=== PATIENT | female | born 1940 | race Caucasian/White ===

== ENCOUNTER → 2018-12-28 15:54 | Outpatient (CLI) | payer OTHER, SELFPAY ==
--- NOTE | 2018-12-28 | DI.RAD.S_ITS ---
PROCEDURE: XR KNEE RT 3V INDICATIONS: right knee pain TECHNIQUE: 3 views of the knee were acquired. COMPARISON: None. FINDINGS: Bones: Osteopenia. No fractures or dislocations. Moderate joint space narrowing most pronounced in the medial compartment. Small osteophytes. No suspicious bony lesions. Soft tissues: No significant joint effusion. No suspicious soft tissue calcifications. IMPRESSION: No acute osseous abnormality. 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 Dictated by: Garland Tilley M.D. on 12/28/2018 at 17:32 Approved by: Garland Tilley M.D. on 12/28/2018 at 17:33
== END ==
PROVIDERS: Family Provider Family Medicine; PCP Family Medicine; Visit Provider Family Medicine
DX: M25.561 Pain in right knee (principal); M17.11 Unilateral primary osteoarthritis, right knee
CPT/HCPCS: 73562

== ENCOUNTER → 2019-05-19 12:15 | Outpatient (CLI) | payer OTHER, SELFPAY ==
--- NOTE | 2019-05-19 12:21 | DI.RAD.S_ITS ---
PROCEDURE: XR HAND RT MIN 3V INDICATIONS: SWELLING OF MIDDLE FINGER POST FALL/ FOCUS ON MIDDLE FINGER TECHNIQUE: 3 views of the hand(s) acquired. COMPARISON: None. FINDINGS: Bones: Mildly impacted fracture of the base of the proximal phalanx of the middle finger. Diffuse interphalangeal joint degeneration and osteopenia. First CMC and triscaphe joint degeneration, severe. Ulnocarpal compartment chondrocalcinosis. Nonspecific lucency projecting in the distal ulna Soft tissues: No suspicious soft tissue calcifications. IMPRESSION: Middle finger proximal phalanx fracture Chondrocalcinosis Dictated by: Kam Mortensen M.D. on 05/19/2019 at 16:10 Approved by: Kam Mortensen M.D. on 05/19/2019 at 16:12
== END ==
PROVIDERS: Family Provider Family Medicine; PCP Family Medicine; Referring Provider Family Medicine; Visit Provider Family Medicine
DX: S62.612A Displaced fracture of proximal phalanx of right middle finger, initial encounter for closed fracture (principal); M79.89 Other specified soft tissue disorders; M11.241 Other chondrocalcinosis, right hand; M18.11 Unilateral primary osteoarthritis of first carpometacarpal joint, right hand; W19.XXXA Unspecified fall, initial encounter
CPT/HCPCS: 73130

== ENCOUNTER → 2020-11-06 11:39 | Outpatient (CLI) | payer OTHER, SELFPAY ==
--- NOTE | 2020-11-06 | DI.RAD.S_ITS ---
PROCEDURE: XR ELBOW LT MIN 3V INDICATIONS: left elbow injury TECHNIQUE: 3 views of the elbow were acquired. COMPARISON: None. FINDINGS: Bones: No fractures or dislocations. No suspicious bony lesions. Soft tissues: No elbow joint effusion. No suspicious soft tissue calcifications. IMPRESSION: No trauma found. Dictated by: Jose Lenz M.D. on 11/06/2020 at 15:50 Approved by: Jose Lenz M.D. on 11/06/2020 at 15:51
== END ==
PROVIDERS: PCP Family Medicine; Referring Provider Family Medicine; Visit Provider Family Medicine
DX: S59.902A Unspecified injury of left elbow, initial encounter (principal); X58.XXXA Exposure to other specified factors, initial encounter
CPT/HCPCS: 73080

== ENCOUNTER 2021-01-11 18:17 | Emergency (ER) | payer OTHER, SELFPAY ==
[2021-01-11] VITALS (11 sets, daily range): BP systolic 112–142; BP diastolic 60–72; PULSE 80–105; RESP 16–22; TEMP 37.2; O2SAT 96–99; BMI 26.5
--- NOTE | 2021-01-11 18:27 | DI.RAD.S_ITS ---
PROCEDURE: XR CHEST 1V INDICATIONS: suspected sepsis TECHNIQUE: One view of the chest was acquired. COMPARISON: [facility], , CHEST 1 VIEW, 02/20/2011, 16:25. FINDINGS: Surgical changes and devices: None. Lungs and pleura: Lungs are clear. No pleural effusions or pneumothorax. Mediastinum: Mediastinal contours appear normal. Heart size is normal. Bones and chest wall: No suspicious bony lesions. Overlying soft tissues appear unremarkable. IMPRESSION: No acute cardiopulmonary disease. Dictated by: Alessandro Soto M.D. on 01/11/2021 at 20:33 Approved by: Alessandro Soto M.D. on 01/11/2021 at 20:33
--- NOTE | 2021-01-11 18:42 | ED.FEVER ---
HPI - Fever General Chief Complaint: Fever Stated Complaint: Dehydrated and Fever Time Seen by Provider: 01/11/21 18:26 Source: patient Mode of arrival: Ambulatory History of Present Illness HPI Narrative: Patient is a 80-year-old female history of gastric bypass presenting today with generalized weakness and fever at home. She is been ongoing for last couple of days she just a feel quite right. Last night she had some abdominal pain. She has had a mild headache as well. sHe says she has neck pain but seems to be moving her neck rate easily. She she is not nauseous or vomiting. She does have intermittent diarrhea but that has been unchanged since her gastric bypass. She denies any chest pain palpitations no cough or shortness of breath. She has no painful or frequent urination. Related Data Home Medications Medication Instructions Recorded Confirmed alprazolam 0.25 mg tablet 0.25 mg PO PRN #0 02/16/11 esomeprazole magnesium 40 mg 40 mg PO QDAY@0600 #0 02/16/11 capsule,delayed release (Nexium) Previous Rx's Medication Instructions Recorded cephalexin 500 mg capsule 500 mg PO BID 7 Days #14 cap 01/11/21 Allergies Allergy/AdvReac Type Severity Reaction Status Date / Time Sulfa (Sulfonamide Allergy Severe ITCHY AND Verified 01/11/21 18:29 Antibiotics) SOB Review of Systems Review of Systems ROS Unobtainable: All systems reviewed & are unremarkable except as noted in HPI and below Constitutional Constitutional: Denies chills, Reports fatigue, Reports fever(s) and Reports headache(s) ENT Ears, Nose, Mouth, and Throat: Denies vertigo, Denies dizziness, Reports headache(s) and Reports neck pain Cardiovascular Cardiovascular: Denies chest pain, Denies irregular heart rhythm and Denies dyspnea on exertion Respiratory Respiratory: Denies chest congestion, Denies cough and Denies dyspnea on exertion Gastrointestinal Gastrointestinal: Reports abdominal pain and Denies nausea Genitourinary Genitourinary: Denies urinary incontinence and Denies urinary hesitancy Musculoskeletal Musculoskeletal: Denies back pain, Reports myalgias, Reports neck pain and Denies numbness Neurologic Neurologic: Denies vertigo, Denies dizziness, Reports headache(s) and Denies numbness Endocrine Endocrine: Reports fatigue Patient History Social History Smoking Status: Never smoker Smoking Status: Never smoker alcohol intake frequency: other Substance Use Type: does not use Exam Initial Vital Signs Initial Vital Signs: Vital Signs Temperature 98.9 F 01/11/21 18:26 Pulse Rate 105 H 01/11/21 18:26 Respiratory Rate 17 01/11/21 18:26 Blood Pressure 142/72 H 01/11/21 18:26 Pulse Oximetry 96 01/11/21 18:26 GENERAL: Alert well-appearing 80-year-old female HEENT: Head atraumatic,EOMI, pupils reactive, face symmetric, [moist] mucous membranes NECK: Supple no vertebral tenderness no meningeal signs CARDIOVASCULAR: Regular rate and rhythm without murmurs, rubs or gallops. RESPIRATORY: Breath sounds equal bilaterally, no wheezes rales or rhonchi. ABDOMEN: Soft, nontender. Normoactive bowel sounds all 4 quadrants. No guarding or rebound. EXTREMITIES: Normal range of motion, no clubbing or edema. Neurovascularly intact NEUROLOGICAL: Alert and oriented x4.Normal gait and speech. SKIN: Warm, dry, no laceration, no petechiae, no rashes or lesions. Course Orders Ordered: ED Orders 01/11/21 18:25 COVID19 -Nasal swab/Pre-Proc Stat 01/11/21 18:27 XR chest 1V Stat RT Consult Eval and Treat Now 01/11/21 18:40 Complete Blood Count AUTO DIFF Stat Comprehensive Metabolic Panel Stat Lactate (Lactic Acid) Stat Lipase Stat Procalcitonin Stat 01/11/21 19:00 Urinalysis and Microscopic Stat 01/11/21 19:06 EKG-12 Lead Stat 01/11/21 19:18 Blood Culture Stat 01/11/21 19:30 CT abdomen pelvis w con Stat CT head/brain wo con Stat Discontinued Medications Sodium Chloride (Normal Saline 0.9%) 1,000 mls @ 1,000 mls/hr IV BOLUS ONE Stop: 01/11/21 19:26 Last Infusion: 01/11/21 21:31 Dose: 0 mls/hr Documented by: Admin: 01/11/21 19:01 Dose: 1,000 mls/hr Documented by: ISAIAH Ceftriaxone Sodium 1,000 mg/ (Sodium Chloride) 100 mls @ 200 mls/hr IV NOW ONE Stop: 01/11/21 19:31 Last Infusion: 01/11/21 21:00 Dose: 0 mls/hr Documented by: Admin: 01/11/21 20:02 Dose: 200 mls/hr Documented by: ISAIAH Vital Signs Vital signs: Vital Signs - 8 hr 01/11/21 18:26 01/11/21 18:40 01/11/21 19:00 Temperature 98.9 F Pulse Rate 105 H Respiratory Rate 17 19 Blood Pressure 142/72 H 116/61 Pulse Oximetry 96 96 96 01/11/21 19:30 01/11/21 20:02 01/11/21 20:06 Temperature Pulse Rate 89 87 82 Respiratory Rate 22 20 Blood Pressure 127/63 121/61 Pulse Oximetry 96 98 01/11/21 20:30 01/11/21 20:57 01/11/21 21:00 Temperature Pulse Rate 80 86 83 Respiratory Rate 17 17 16 Blood Pressure 112/60 120/70 119/67 Pulse Oximetry 98 99 01/11/21 21:30 01/11/21 21:31 Temperature Pulse Rate 82 82 Respiratory Rate 20 Blood Pressure 123/64 Pulse Oximetry MDM - Fever Lab Data Result diagrams: 01/11/21 18:40 01/11/21 18:40 Labs: Lab Results 01/11/21 01/11/21 01/11/21 Range/Units 18:25 18:40 18:40 WBC 15.6 H (4.5-11.0) X10^3/uL RBC 4.60 (4.0-5.2) X10^6/uL Hgb 13.6 (12.0-16.0) g/dL Hct 40.8 (36-46) % MCV 88.7 (80-100) fL MCH 29.5 (26-34) PG MCHC 33.3 (30-36) % RDW 14.4 (11.6-14.8) % Plt Count 253 (150-400) X10^3/uL Neut % (Auto) 87.2 H (50-75) % Lymph % (Auto) 5.7 L (25-40) % [place] % (Auto) 6.5 (3-14) % Eos % (Auto) 0.1 L (2-4) % Baso % (Auto) 0.5 (0-2) % Neut # (Auto) 86933 H (0435-6760) /uL Lymph # (Auto) 900 L (1850-7675) /uL [place] # (Auto) 1000 H (0-900) /uL Eos # (Auto) 0 (0-450) /uL Baso # (Auto) 100 (0-100) /uL Sodium 128 L (137-145) mmol/L Potassium 3.7 (3.4-5.1) mmol/L Chloride 96 L (98-107) mmol/L Carbon Dioxide 22 (22-32) mmol/L BUN 15 (7-17) mg/dL Creatinine 0.93 (0.52-1.04) mg/dL Estimated GFR 58.3 L (>60) mL/min BUN/Creatinine Ratio 16.1 (6-22) Glucose 160 H (80-110) mg/dL Lactate (0.7-2.1) mmol/L Calcium 9.0 (8.4-10.2) mg/dL Total Bilirubin 0.7 (0.2-1.3) mg/dL AST 16 (14-36) IU/L ALT 9 (<35) IU/L Alkaline Phosphatase 92 (38-126) U/L Total Protein 6.7 (6.3-8.2) g/dL Albumin 3.8 (3.5-5.0) g/dL Globulin 2.9 (1.7-4.1) g/dL Albumin/Globulin Ratio 1.3 (1.0-2.8) Lipase 19 L (23-300) U/L Procalcitonin 0.21 (<0.5) ng/mL Urine Color Urine Appearance Urine pH (4.5-8.0) Ur Specific [place] (1.000-1.035) Urine Protein (Negative) Urine Glucose (UA) (Negative) g/dL Urine Ketones (NEGATIVE) Urine Occult Blood (Negative) Urine Nitrate (Negative) Urine Bilirubin (NEGATIVE) Urine Urobilinogen (0.2) E.U./dL Ur Leukocyte Esterase (NEGATIVE) Urine RBC (0-5/HPF) Urine WBC (0-5/HPF) Ur Squamous Epith Cells (0-5/HPF) Urine Bacteria (None) Ur Culture Indicated? Micro UA Comment SARS-CoV-2 (PCR) Negative (Negative) 01/11/21 01/11/21 Range/Units 18:40 19:00 WBC (4.5-11.0) X10^3/uL RBC (4.0-5.2) X10^6/uL Hgb (12.0-16.0) g/dL Hct (36-46) % MCV (80-100) fL MCH (26-34) PG MCHC (30-36) % RDW (11.6-14.8) % Plt Count (150-400) X10^3/uL Neut % (Auto) (50-75) % Lymph % (Auto) (25-40) % [place] % (Auto) (3-14) % Eos % (Auto) (2-4) % Baso % (Auto) (0-2) % Neut # (Auto) (8608-3232) /uL Lymph # (Auto) (8324-3984) /uL [place] # (Auto) (0-900) /uL Eos # (Auto) (0-450) /uL Baso # (Auto) (0-100) /uL Sodium (137-145) mmol/L Potassium (3.4-5.1) mmol/L Chloride (98-107) mmol/L Carbon Dioxide (22-32) mmol/L BUN (7-17) mg/dL Creatinine (0.52-1.04) mg/dL Estimated GFR (>60) mL/min BUN/Creatinine Ratio (6-22) Glucose (80-110) mg/dL Lactate 1.0 (0.7-2.1) mmol/L Calcium (8.4-10.2) mg/dL Total Bilirubin (0.2-1.3) mg/dL AST (14-36) IU/L ALT (<35) IU/L Alkaline Phosphatase (38-126) U/L Total Protein (6.3-8.2) g/dL Albumin (3.5-5.0) g/dL Globulin (1.7-4.1) g/dL Albumin/Globulin Ratio (1.0-2.8) Lipase (23-300) U/L Procalcitonin (<0.5) ng/mL Urine Color Yellow Urine Appearance Cloudy Urine pH 5.5 (4.5-8.0) Ur Specific [place] 1.010 (1.000-1.035) Urine Protein 1+ H (Negative) Urine Glucose (UA) Negative (Negative) g/dL Urine Ketones Trace H (NEGATIVE) Urine Occult Blood 3+ H (Negative) Urine Nitrate Positive H (Negative) Urine Bilirubin Negative (NEGATIVE) Urine Urobilinogen 0.2 (0.2) E.U./dL Ur Leukocyte Esterase 2+ H (NEGATIVE) Urine RBC 5-10/hpf H (0-5/HPF) Urine WBC >100/hpf H (0-5/HPF) Ur Squamous Epith Cells 10-30 /hpf H (0-5/HPF) Urine Bacteria Many (>30) H (None) Ur Culture Indicated? Cult not indicated Micro UA Comment 2.5 ml submitted SARS-CoV-2 (PCR) (Negative) Imaging Data CT scan - head: Radiologist's Impression: PROCEDURE:? CT HEAD/BRAIN WO CON ? INDICATIONS:? headache ? TECHNIQUE:? Noncontrast 4.5 mm thick angled axial sections acquired from the foramen magnum to the vertex, with coronal and sagittal reformats.? For radiation dose reduction, the following was used:? automated exposure control, adjustment of mA and/or kV according to patient size.? ? COMPARISON:? [facility], CT, HEAD WITHOUT CONTRAST, 05/20/2016, 20:32. ? FINDINGS:? Image quality:? Excellent.? ? CSF spaces:? Basal cisterns are patent.? No extra-axial fluid collections.? The ventricles are symmetric in size and shape.? ? Brain:? No intracranial bleeds or masses.? There are old lacunar infarcts in right caudate and basal ganglia.? There is cerebral volume loss for age, with resultant ventricular and sulcal prominence.? There are periventricular and deep white matter chronic small vessel ischemic changes.? There is intracranial internal carotid artery atherosclerosis.? ? Skull and face:? Calvarium and visualized facial bones appear intact, without suspicious lesions.? ? Sinuses:? Visualized sinuses and mastoids are clear.? ? IMPRESSION:? ? 1. No acute intracranial abnormalities. ? ? ? Dictated by: Alessandro Soto M.D. on 01/11/2021 at 20:14 ? ? CT scan - abdomen/pelvis: Radiologist's Impression: PROCEDURE:? CT ABDOMEN PELVIS W CON ? INDICATIONS:? pain hx gastric bypass ? TECHNIQUE:? After the administration of intravenous contrast, axial sections acquired from the lung bases to the pubic symphysis.? Coronal and sagittal reformats were performed.? For radiation dose reduction, the following was used:? automated exposure control, adjustment of mA and/or kV according to patient size.? ? COMPARISON:? [facility], CT, ABDOMEN/PELVIS WITH CONTRAST, 02/20/2011, 13:18. ? FINDINGS:? Image quality:? Excellent.? ? Lung bases:? Bibasilar atelectasis.? Mild emphysema. Heart:? No significant findings. ? ABDOMEN: Liver:? Normal in size.? Mild intrahepatic biliary dilation.? There is a 0.7 cm low-density nodule in the anterior aspect of the right hepatic lobe, most likely a cyst.? ? Gallbladder:? Not visualized, possibly surgically removed. Biliary ducts:? Mildly prominent.? Common bile duct measures 8 mm in diameter. ? ? ? Pancreas:? Unremarkable. Spleen:? Unremarkable.? ? Adrenal Glands:? Unremarkable.? ? Kidneys and Ureters:? Kidneys are normal in size.? There are masslike areas of decreased enhancement in the inferior pole of the right kidney, most likely secondary to pyelonephritis.? There is extrarenal pelvis in right kidney left kidney demonstrates normal size and enhancement.? No renal stones or hydronephrosis.? ? ? Stomach and Bowel:? There are postsurgical changes related to gastric bypass.? There is thickening at the GE junction is most likely postsurgical in nature.? Small bowel loops, and colon are unremarkable.? Peritoneum:? No abnormal intraperitoneal fluid.? No free air.? ? Ventral Wall: ? Small fat containing umbilical hernia.? Abdominal Nodes:? No retroperitoneal or mesenteric adenopathy by size criteria.? Vessels:? Aorta and inferior vena cava are normal in size.? ? PELVIS: Pelvic Organs:? Unremarkable.? ? Bladder:? Bladder is mildly thickened.? ? Pelvic Nodes: No enlarged lymph nodes.? Miscellaneous: No hernias are seen. ? ? ? Bones:? Moderate to severe degenerative changes in lumbar spine.? There is grade 1 anterolisthesis of L4 on L5. ? ? IMPRESSION:? ? 1. The inferior pole of the right kidney is abnormal with masslike areas of decreased enhancement, suspicious for pyelonephritis.? The urinary bladder is mildly thickened consistent with cystitis. 2. Postsurgical changes related to gastric bypass. 3. A 0.7 cm low-density nodule in liver is most likely a cyst.? ? ? The preliminary result was discussed with Dr. Mcclain. ? Dictated by: Alessandro Soto M.D. on 01/11/2021 at 21:12 ? ? Approved by: Alessandro Soto M.D. on 01/11/2021 at 21:24 Chest x-ray: Radiologist's Impression: PROCEDURE:? XR CHEST 1V ? INDICATIONS:? suspected sepsis ? TECHNIQUE:? One view of the chest was acquired.? ? COMPARISON:? [facility], , CHEST 1 VIEW, 02/20/2011, 16:25. ? FINDINGS:? ? Surgical changes and devices:? None.? ? Lungs and pleura:? Lungs are clear.? No pleural effusions or pneumothorax.? ? Mediastinum:? Mediastinal contours appear normal.? Heart size is normal.? ? Bones and chest wall:? No suspicious bony lesions.? Overlying soft tissues appear unremarkable.? ? IMPRESSION:? No acute cardiopulmonary disease. ? ? Dictated by: Alessandro Soto M.D. on 01/11/2021 at 20:33 ? ? ECG Data Interpretation: Normal sinus rhythm rate [address] changes Q-waves noted in lead 3 similar to previous EKG. Q-waves are also noted in septal leads similar to previous. MDM Narrative Medical decision making narrative: Patient is found to have leukocytosis UTI and pyelonephritis on CT. She has a normal lactic acid normal vitals is. She is overall feeling better after fluids. She has minimally elevated procalcitonin. She is given 1 dose of Rocephin in the emergency department. At this time does not meet any admission criteria she overall appears well she is not septic. At this time can be treated as an outpatient. Discussed with and patient when to return to the emergency department. Discharge Plan Departure Patient Disposition: Home Clinical Impression: UTI (urinary tract infection) Qualifiers: Urinary tract infection type: acute pyelonephritis Qualified Code(s): N10 - Acute pyelonephritis Instructions: DI for Kidney Infection Activity Restrictions/Additional Instructions: *You have been diagnosed with kidney infection *What to do: At this time you do have a kidney infection. Increase fluids as tolerated. Sodium is also noted to be a little bit low. Please have this rechecked with her primary care provider this week. *Continue to take medications as directed Keflex 500 mg twice a day for 7 days *Follow up with your primary care provider in 2-3 days *Return to ER if you should have increasing weakness, increasing confusion, increasing pain or any new, worsening or concerning symptoms Prescriptions: New cephalexin 500 mg capsule 500 mg PO BID 7 Days Qty: 14 RF: 0 No Action esomeprazole magnesium [Nexium] 40 MG capsule,delayed release(DR/EC) 40 mg PO QDAY@0600 Qty: 0 RF: 0 alprazolam 0.25 MG tablet 0.25 mg PO PRN Qty: 0 RF: 0 Referrals: Elie Bolaños MD [Primary Care Provider] -
[2021-01-11 18:53] LABS: COVID19 -Nasal RAPID Negative (Negative)
[2021-01-11] MEDS: SODIUM CHLORIDE 0.9% 1,000 ML 1000 ML IV (19:01)
[2021-01-11 19:11] LABS: Add Manual Diff / Slide Review NO; Basophils Absolute Auto 100 /uL (0-100); Basophils Percent Auto 0.5 % (0-2); Eosinophils Absolute Auto 0 /uL (0-450); Eosinophils Percent Auto 0.1 % (2-4); Hematocrit 40.8 % (36-46); Hemoglobin 13.6 g/dL (12.0-16.0); Lymphocytes Absolute Auto 900 /uL (1100-4500); Lymphocytes Percent Auto 5.7 % (25-40); Mean Corpuscular HGB Conc 33.3 % (30-36); Mean Corpuscular Hemoglobin 29.5 PG (26-34); Mean Corpuscular Volume 88.7 fL (80-100); Monocytes Absolute Auto 1000 /uL (0-900); Monocytes Percent Auto 6.5 % (3-14); Neutrophils Absolute Auto 13600 /uL (1500-7000); Neutrophils Percent Auto 87.2 % (50-75); Platelet Count 253 X10^3/uL (150-400); Red Cell Distribution Width 14.4 % (11.6-14.8); White Blood Cell Count 15.6 X10^3/uL (4.5-11.0)
[2021-01-11 19:11] LABS: Appearance Urine UA CLOUDY; Bilirubin Urine UA NEGATIVE (NEGATIVE); Color Urine UA YELLOW; Glucose Urine UA NEGATIVE (Negative); Ketones Urine UA TRACE (NEGATIVE); Leukocyte Esterase Urine UA 2+ (NEGATIVE); Nitrite Urine UA POSITIVE (Negative); Occult Blood Urine UA 3+ (Negative); Protein Urine UA 1+ (Negative); Urobilinogen Urine UA 0.2 E.U./dL (0.2)
[2021-01-11 19:23] LABS: Alanine Aminotransferase 9 IU/L (<35); Albumin 3.8 g/dL (3.5-5.0); Albumin Globulin Ratio 1.3 (1.0-2.8); Alkaline Phosphatase 92 U/L (38-126); Aspartate Aminotransferase 16 IU/L (14-36); BUN Creatinine Ratio 16.1 (6-22); Bilirubin Total 0.7 mg/dL (0.2-1.3); Blood Urea Nitrogen 15 mg/dL (7-17); Carbon Dioxide 22 mmol/L (22-32); Chloride 96 mmol/L (98-107); Estimated Glomerular Filt Rate 58.3 mL/min (>60); Globulin 2.9 g/dL (1.7-4.1); Glucose 160 mg/dL (80-110); HEMOLYSIS < 15 (0-50); Lipase 19 U/L (23-300); Potassium 3.7 mmol/L (3.4-5.1); Sodium 128 mmol/L (137-145); Total Protein 6.7 g/dL (6.3-8.2)
[2021-01-11 19:24] LABS: RBC Urine 5-10/HPF (0-5/HPF); Squamous Epithelial Cell Urine 10-30 /HPF (0-5/HPF); WBC Urine >100/HPF (0-5/HPF); pH Urine UA 5.5 (4.5-8.0)
[2021-01-11 19:25] LABS: Bacteria Urine Many (>30); Urine Comments 2.5 ML SUBMITTED
[2021-01-11 19:27] LABS: Culture Indicated Urine Cult Not Indicated
--- NOTE | 2021-01-11 19:30 | DI.CT.S_ITS ---
PROCEDURE: CT HEAD/BRAIN WO CON INDICATIONS: headache TECHNIQUE: Noncontrast 4.5 mm thick angled axial sections acquired from the foramen magnum to the vertex, with coronal and sagittal reformats. For radiation dose reduction, the following was used: automated exposure control, adjustment of mA and/or kV according to patient size. COMPARISON: [facility], CT, HEAD WITHOUT CONTRAST, 05/20/2016, 20:32. FINDINGS: Image quality: Excellent. CSF spaces: Basal cisterns are patent. No extra-axial fluid collections. The ventricles are symmetric in size and shape. Brain: No intracranial bleeds or masses. There are old lacunar infarcts in right caudate and basal ganglia. There is cerebral volume loss for age, with resultant ventricular and sulcal prominence. There are periventricular and deep white matter chronic small vessel ischemic changes. There is intracranial internal carotid artery atherosclerosis. Skull and face: Calvarium and visualized facial bones appear intact, without suspicious lesions. Sinuses: Visualized sinuses and mastoids are clear. IMPRESSION: 1. No acute intracranial abnormalities. Dictated by: Alessandro Soto M.D. on 01/11/2021 at 20:14 Approved by: Alessandro Soto M.D. on 01/11/2021 at 20:16
--- NOTE | 2021-01-11 19:30 | DI.CT.S_ITS ---
PROCEDURE: CT ABDOMEN PELVIS W CON INDICATIONS: pain hx gastric bypass TECHNIQUE: After the administration of intravenous contrast, axial sections acquired from the lung bases to the pubic symphysis. Coronal and sagittal reformats were performed. For radiation dose reduction, the following was used: automated exposure control, adjustment of mA and/or kV according to patient size. COMPARISON: [facility], CT, ABDOMEN/PELVIS WITH CONTRAST, 02/20/2011, 13:18. FINDINGS: Image quality: Excellent. Lung bases: Bibasilar atelectasis. Mild emphysema. Heart: No significant findings. ABDOMEN: Liver: Normal in size. Mild intrahepatic biliary dilation. There is a 0.7 cm low-density nodule in the anterior aspect of the right hepatic lobe, most likely a cyst. Gallbladder: Not visualized, possibly surgically removed. Biliary ducts: Mildly prominent. Common bile duct measures 8 mm in diameter. Pancreas: Unremarkable. Spleen: Unremarkable. Adrenal Glands: Unremarkable. Kidneys and Ureters: Kidneys are normal in size. There are masslike areas of decreased enhancement in the inferior pole of the right kidney, most likely secondary to pyelonephritis. There is extrarenal pelvis in right kidney left kidney demonstrates normal size and enhancement. No renal stones or hydronephrosis. Stomach and Bowel: There are postsurgical changes related to gastric bypass. There is thickening at the GE junction is most likely postsurgical in nature. Small bowel loops, and colon are unremarkable. Peritoneum: No abnormal intraperitoneal fluid. No free air. Ventral Wall: Small fat containing umbilical hernia. Abdominal Nodes: No retroperitoneal or mesenteric adenopathy by size criteria. Vessels: Aorta and inferior vena cava are normal in size. PELVIS: Pelvic Organs: Unremarkable. Bladder: Bladder is mildly thickened. Pelvic Nodes: No enlarged lymph nodes. Miscellaneous: No hernias are seen. Bones: Moderate to severe degenerative changes in lumbar spine. There is grade 1 anterolisthesis of L4 on L5. IMPRESSION: 1. The inferior pole of the right kidney is abnormal with masslike areas of decreased enhancement, suspicious for pyelonephritis. The urinary bladder is mildly thickened consistent with cystitis. 2. Postsurgical changes related to gastric bypass. 3. A 0.7 cm low-density nodule in liver is most likely a cyst. The preliminary result was discussed with Dr. Mcclain. Dictated by: Alessandro Soto M.D. on 01/11/2021 at 21:12 Approved by: Alessandro Soto M.D. on 01/11/2021 at 21:24
[2021-01-11 19:39] LABS: Procalcitonin 0.21 ng/mL (<0.5)
[2021-01-11] MEDS: cefTRIAXone 1,000 MG in SODIUM CHLORIDE 0.9% 100 ML 200 ML IV (20:02)
== END 2021-01-11 21:51 | disposition home or self-care (01) ==
PROVIDERS: Emergency Provider Emergency Medicine; PCP Family Medicine
DX: N39.0 Urinary tract infection, site not specified (principal); E86.0 Dehydration; R50.9 Fever, unspecified; R53.1 Weakness; R10.9 Unspecified abdominal pain; R51.9 Headache, unspecified; Z20.822 Contact with and (suspected) exposure to COVID-19
CPT/HCPCS: 36415; 70450; 71045; 74177; 80053; 81001; 83605; 83690; 84145; 85025; 87040; 87635; 93005; 96361; 96365; 99284; C9803; J0696; Q9967

== ENCOUNTER 2021-06-07 19:38 | Emergency (ER) | payer OTHER, SELFPAY ==
[2021-06-07 19:49] VITALS: BP 140/85; PULSE 76; RESP 20; TEMP 36.8; O2SAT 97
[2021-06-07] MEDS: LIDO 1%/SOD BICARB 8.4% (10ML) 10 ML SYRINGE INJ (20:11)
--- NOTE | 2021-06-07 20:21 | ED_ITS ---
HPI - Extremity Injury (Upper) General Chief Complaint: Extremity Injury, Upper Stated Complaint: deep/large laceration on arm, GLF Time Seen by Provider: 06/07/21 19:42 Source: patient and family Mode of arrival: Wheelchair History of Present Illness HPI narrative: 81-year-old female nonsmoker with history of GERD presents with her for evaluation of a laceration on the dorsum of her left forearm just prior to arrival. She had been in her normal state of health and tripped and fell on a box on the ground suffering this laceration. She denies any head neck or back pain. She denies any underlying bony injury. She has a superficial laceration with minimal bleeding. She denies any numbness, tingling or weakness. She is otherwise well and free of complaint Related Data Home Medications Medication Instructions Recorded Confirmed alprazolam 0.25 mg tablet 0.25 mg PO PRN #0 02/16/11 esomeprazole magnesium 40 mg 40 mg PO QDAY@0600 #0 02/16/11 capsule,delayed release (Nexium) Previous Rx's Medication Instructions Recorded cephalexin 500 mg capsule 500 mg PO Q6H 7 Days #28 cap 06/07/21 Allergies Allergy/AdvReac Type Severity Reaction Status Date / Time Sulfa (Sulfonamide Allergy Severe ITCHY AND Verified 01/11/21 18:29 Antibiotics) SOB Review of Systems Review of Systems Narrative: GENERAL: Denies chills, fatigue, malaise, fever, sweats. HEENT: Denies sinus pain, ear pain, sore throat, difficulty swallowing, dizziness. RESPIRATORY: Denies dyspnea, cough, wheezing, hemoptysis, sputum. CARDIOVASCULAR: Denies chest pain, palpitations, orthopnea, edema, GASTROINTESTINAL: Denies nausea, vomiting, abdominal pain, diarrhea, constipation, melena. : Denies dysuria, frequency, incontinence, hematuria, urinary retention. MUSCULOSKELETAL: denies weakness, joint pain, or bony pain SKIN: See HPI NEUROLOGIC: Denies weakness, headache, numbness, change in speech, confusion, seizures, incoordination. PSYCHIATRIC: No concerning psychosocial issues. 12 point review of systems is negative except for those stated above Patient History Social History Smoking Status: Never smoker Smoking Status: Never smoker alcohol intake frequency: other Substance Use Type: does not use Exam Narrative Exam Narrative: GENERAL: 81 [] year old patient appears stated age. Well-developed patient, in mild distress. GCS 15 HEAD: Atraumatic. Normocephalic. EYES: Pupils equal round and reactive. Extraocular motions intact. No scleral icterus. No injection or drainage. ENT: Nose without bleeding, purulent drainage. Throat without erythema, tonsillar hypertrophy or exudate. Airway patent. NECK: Trachea midline. Non tender CARDIOVASCULAR: Regular rate and rhythm without murmurs, gallops, or rubs. RESPIRATORY: Clear to auscultation. Breath sounds equal bilaterally. No wheezes, rales, or rhonchi. GASTROINTESTINAL: Abdomen soft, non-tender, nondistended. EXTREMITIES: Irregular laceration and skin tear on dorsum of left forearm measuring 10 cm with minimal bleeding, clean without obvious contamination or foreign body. Viewed in a bloodless field and no evidence of muscle or tendon injury. No edema or joint tenderness. BACK: Nontender without deformity or crepitance. No flank tenderness. NEURO: AOx3. SKIN: No rash or erythema of visible areas Initial Vital Signs Initial Vital Signs: Vital Signs Temperature 98.2 F 06/07/21 19:49 Pulse Rate 76 06/07/21 19:49 Respiratory Rate 20 06/07/21 19:49 Blood Pressure 140/85 06/07/21 19:49 Pulse Oximetry 97 06/07/21 19:49 Procedures Laceration Repair Laceration 1: Site: upper extremity Side (If applicable): left Size (cm): 10 Description: stellate, flap, irregular and clean Depth: simple, single layer Local Anesthetic: lidocaine 1% and with bicarb Amount of anesthesia used (mL): 6 Pre-repair: wound explored and irrigated extensively Skin layer closed with: nylon Size (cm): 4-0 Number of sutures: 12 Technique: simple, interrupted Subcutaneous layer closed with: vicryl Size: 4-0 Number of sutures: 2 Technique: simple, interrupted Course Orders Ordered: Discontinued Medications Bacitracin (Bacitracin Oint 0.9 Gm Pckt) 1 applic TOP NOW ONE Stop: 06/07/21 20:20 Lidocaine/Sodium Bicarbonate (Lido 1%/Sod Bicarb 8.4% (10ml) 10 Ml Syringe) 10 ml INJ NOW ONE Stop: 06/07/21 19:52 Last Admin: 06/07/21 20:11 Dose: 10 ml Documented by: JOSSIE Vital Signs Vital signs: Vital Signs - 8 hr 06/07/21 19:49 Temperature 98.2 F Pulse Rate 76 Respiratory Rate 20 Blood Pressure 140/85 Pulse Oximetry 97 Discharge Plan Departure Patient Disposition: Home Clinical Impression: Laceration of upper extremity Instructions: DI for Laceration Repair Activity Restrictions/Additional Instructions: *You have been diagnosed with [left upper extremity laceration *What to do: *Please continue to take your regular medications as directed. [x ] New medication prescriptions sent to your pharmacy: [ [facility]] [ ] New medication written as a paper prescription [ ] No new medications given * Please keep the wound clean and dry to the best of your ability. Please monitor for signs of infection such as redness to the skin or increasing pain. Have the sutures/socorro removed by your doctor in about 7 days. If you are unable to get into your doctor, we would be happy to remove the sutures/socorro in that same timeframe. *If you do not have a primary care provider please contact the [facility] Resource line at [phone]. They will ask some questions about your medical history and help get you set up with a doctor in the community. *Return to Emergency Department if you should have any new, worsening or concerning symptoms, such as [fever greater than 101 F, shaking chills, worsening pain, persistent vomiting or other bothersome symptoms] Prescriptions: New cephalexin 500 mg capsule 500 mg PO Q6H 7 Days Qty: 28 0RF No Action esomeprazole magnesium [Nexium] 40 MG capsule,delayed release(DR/EC) 40 mg PO QDAY@0600 Qty: 0 0RF alprazolam 0.25 MG tablet 0.25 mg PO PRN Qty: 0 0RF Referrals: Elie Bolaños MD [Primary Care Provider] -
[2021-06-07] MEDS: BACITRACIN OINT 0.9 GM PCKT 1 APPLIC TOP (20:24)
== END 2021-06-07 20:36 | disposition home or self-care (01) ==
PROVIDERS: Emergency Provider Emergency Medicine; PCP Family Medicine
DX: S51.812A Laceration without foreign body of left forearm, initial encounter (principal); Z88.2 Allergy status to sulfonamides; W18.09XA Striking against other object with subsequent fall, initial encounter
CPT/HCPCS: 12004; 99282; 99283

== ENCOUNTER 2022-05-22 14:05 | Observation (INO) | payer OTHER, SELFPAY ==
[2022-05-22] VITALS (16 sets, daily range): BP systolic 107–156; BP diastolic 60–70; PULSE 77–85; RESP 13–22; TEMP 36.8; O2SAT 90–99; BMI 22.6; BMI 20.1
--- NOTE | 2022-05-22 14:25 | DI.RAD.S_ITS ---
PROCEDURE: XR CHEST 1V INDICATIONS: suspected sepsis TECHNIQUE: One view of the chest was acquired. COMPARISON: [facility], CR, XR CHEST 1V, 01/11/2021, 19:39. FINDINGS: Surgical changes and devices: None. Lungs and pleura: Right lower lobe infiltrate consistent with pneumonia. No pleural effusions or pneumothorax. Mediastinum: Mediastinal contours appear normal. Heart size is normal. Bones and chest wall: No suspicious bony lesions. Overlying soft tissues appear unremarkable. IMPRESSION: Right lower lobe pneumonia. Dictated by: Alessandro Soto M.D. on 05/22/2022 at 15:00 Approved by: Alessandro Soto M.D. on 05/22/2022 at 15:14
[2022-05-22 15:15] LABS: Influenza A - CEPHEID Flu A NEGATIVE (NEGATIVE); Influenza B - CEPHEID Flu B NEGATIVE (NEGATIVE); Respiratory Syncytial Virus Negative (Negative)
[2022-05-22 15:16] LABS: Add Manual Diff / Slide Review NO; Basophils Absolute Auto 0 /uL (0-100); Basophils Percent Auto 0.3 % (0-2); Eosinophils Absolute Auto 0 /uL (0-450); Hematocrit 42.3 % (36-46); Hemoglobin 13.9 g/dL (12.0-16.0); Lymphocytes Absolute Auto 600 /uL (1100-4500); Lymphocytes Percent Auto 5.2 % (25-40); Mean Corpuscular HGB Conc 32.9 % (30-36); Mean Corpuscular Hemoglobin 29.7 PG (26-34); Mean Corpuscular Volume 90.2 fL (80-100); Monocytes Absolute Auto 600 /uL (0-900); Neutrophils Absolute Auto 9800 /uL (1500-7000); Neutrophils Percent Auto 89.5 % (50-75); Platelet Count 198 X10^3/uL (150-400); Red Blood Cell Count 4.69 X10^6/uL (4.0-5.2); Red Cell Distribution Width 13.8 % (11.6-14.8)
[2022-05-22 15:25] LABS: Prothrombin Time 11.2 SECONDS (10.1-12.7)
[2022-05-22 15:28] LABS: PTT Partial Thromboplastin Tim 31 SECONDS (26-36)
[2022-05-22 15:32] LABS: Lactate (Lactic Acid) 1.1 mmol/L (0.7-2.1)
[2022-05-22 15:34] LABS: Alanine Aminotransferase 26 IU/L (<35); Albumin 3.9 g/dL (3.5-5.0); Albumin Globulin Ratio 1.4 (1.0-2.8); Alkaline Phosphatase 88 U/L (38-126); Aspartate Aminotransferase 42 IU/L (14-36); BUN Creatinine Ratio 18.1 (6-22); Bilirubin Total 0.5 mg/dL (0.2-1.3); Blood Urea Nitrogen 13 mg/dL (7-17); Calcium 8.2 mg/dL (8.4-10.2); Carbon Dioxide 25 mmol/L (22-32); Chloride 95 mmol/L (98-107); Estimated Glomerular Filt Rate > 60 mL/min (>60); Globulin 2.8 g/dL (1.7-4.1); Glucose 133 mg/dL (80-110); HEMOLYSIS < 15 (0-50); Lipase 14 U/L (23-300); Potassium 3.8 mmol/L (3.4-5.1); Sodium 131 mmol/L (137-145); Total Protein 6.7 g/dL (6.3-8.2)
[2022-05-22 15:43] LABS: COVID-19 CEPHEID 4-PLEX PCR Negative (Negative)
[2022-05-22 15:46] LABS: NT-proBNP (BNP-Adult 18+) 840 pg/mL (<450); Troponin I 0.052 ng/mL (0.01-0.034)
[2022-05-22 15:50] LABS: Procalcitonin 1.42 ng/mL (<0.5)
--- NOTE | 2022-05-22 15:52 | ED.URI ---
HPI - URI/Sore Throat General Chief Complaint: Upper Respiratory Symptoms Stated Complaint: possible pnemonia t-3 Time Seen by Provider: 05/22/22 14:44 Source: patient Mode of arrival: Wheelchair History of Present Illness HPI Narrative: Patient is an 82-year-old female history of GERD, presenting today with increasing shortness of breath weakness and fatigue. She apparently was just treated with Macrobid for a bladder infection by her PCP. It appears that Macrobid was written on the 21 of May. She said increasing weakness shortness of breath. No real chest pain. She said decrease in appetite no nausea or vomiting. Related Data Home Medications Medication Instructions Recorded Confirmed alprazolam 0.25 mg tablet 0.25 mg PO PRN ##0 02/16/11 05/22/22 brimonidine 0.2 % eye drops 1 drp EYE-BOTH DAILY 05/22/22 05/22/22 celecoxib 200 mg capsule 200 mg PO DAILY 05/22/22 05/22/22 dorzolamide 22.3 mg-timolol 6.8 1 drp EYE-BOTH DAILY 05/22/22 05/22/22 mg/mL eye drops hydrocodone 5 mg-acetaminophen 325 5 - 325 tab PO Q4H PRN Pain (Scale 05/22/22 05/22/22 mg tablet Score 4-6) omeprazole 20 mg capsule,delayed 20 mg PO DAILY 05/22/22 05/22/22 release trospium 60 mg capsule,extended 60 mg PO BEDTIME 05/22/22 05/22/22 release 24 hr zolpidem 12.5 mg tablet,extended 12.5 mg PO DAILY 05/22/22 05/22/22 release,multiphase Previous Rx's Medication Instructions Recorded azithromycin 500 mg tablet 500 mg PO DAILY 2 days #2 tabs 05/24/22 Allergies Allergy/AdvReac Type Severity Reaction Status Date / Time Sulfa (Sulfonamide Allergy Severe ITCHY AND Verified 05/22/22 14:23 Antibiotics) SOB Review of Systems Review of Systems ROS Unobtainable: All systems reviewed & are unremarkable except as noted in HPI and below Patient History Social History household members: spouse Smoking Status: Never smoker alcohol intake: current Smoking Status: Never smoker alcohol intake frequency: other Substance Use Type: does not use Exam Initial Vital Signs Initial Vital Signs: Vital Signs Temperature 98.2 F 05/22/22 14:19 Pulse Rate 85 05/22/22 14:19 Respiratory Rate 18 05/22/22 14:19 Blood Pressure 107/65 05/22/22 14:19 Pulse Oximetry 92 05/22/22 14:19 Oxygen Delivery Method Room Air 05/22/22 14:19 GENERAL: Alert thin week 82-year-old female no acute distress HEENT: Head atraumatic,EOMI, pupils reactive, face symmetric, moist mucous membranes CARDIOVASCULAR: Regular rate and rhythm without murmurs, rubs or gallops. RESPIRATORY: Breath sounds equal bilaterally, no wheezes rales or rhonchi. ABDOMEN: Soft, nontender. Normoactive bowel sounds all 4 quadrants. No guarding or rebound. EXTREMITIES: Normal range of motion, no clubbing or edema. Neurovascularly intact NEUROLOGICAL: Alert and oriented x4.Normal gait and speech. SKIN: Warm, dry, no laceration, no petechiae, no rashes or lesions. Course Orders Ordered: Discontinued Medications Acetaminophen (Acetaminophen 325 Mg Tablet) 650 mg PO Q6H PRN PRN Reason: Fever/Mild Pain (1-3) Hydrocodone Bitart/Acetaminophen (Hydrocodone/Acet 5/325 Tablet) 1 tab PO Q4HR PRN PRN Reason: Pain, Moderate (4-6) Last Admin: 05/24/22 13:06 Dose: 1 tab Documented By: [facility] Admin: 05/24/22 09:06 Dose: 1 tab Documented By: [facility] Admin: 05/24/22 05:16 Dose: 1 tab Documented By: Admin: 05/23/22 20:50 Dose: 1 tab Documented By: Admin: 05/23/22 16:28 Dose: 1 tab Documented By: Admin: 05/23/22 11:38 Dose: 1 tab Documented By: Admin: 05/23/22 03:38 Dose: 1 tab Documented By: Admin: 05/22/22 21:51 Dose: 1 tab Documented By: DOM Al Hydrox/Mg Hydrox/Simethicone (Mag Hydrox/Alum/Simeth 30 Ml Udc) 30 ml PO Q6HR PRN PRN Reason: Dyspepsia Alprazolam (Alprazolam 0.25 Mg Tablet) 0.25 mg PO BEDTIME [facility] Last Admin: 05/23/22 03:46 Dose: 0.25 mg Documented By: DOM Alprazolam (Alprazolam 0.25 Mg Tablet) 0.25 mg PO BEDTIME PRN PRN Reason: Insomnia Last Admin: 05/24/22 05:16 Dose: 0.25 mg Documented By: DOM Brimonidine Tartrate (Brimonidine 0.2% Ophth 5 Ml) 1 drops EYE-BOTH DAILY [facility] Last Admin: 05/23/22 08:48 Dose: Not Given Documented By: VAZQUEZ Brimonidine Tartrate (Brimonidine 0.2% Ophth 5 Ml) 1 drops EYE-BOTH BID [facility] Last Admin: 05/24/22 09:03 Dose: 1 drops Documented By: Admin: 05/23/22 20:46 Dose: Not Given Documented By: DOM Calcium Carbonate (Calcium Carbonate 500 Mg Tab) 1,000 mg PO Q4HR PRN PRN Reason: Dyspepsia Celecoxib (Celecoxib 200 Mg Capsule) 200 mg PO DAILY [facility] Last Admin: 05/24/22 09:01 Dose: 200 mg Documented By: Admin: 05/23/22 08:47 Dose: 200 mg Documented By: VAZQUEZ Dorzolamide/Timolol (Dorzolamide/Timolol Ophth 10 Ml) 1 drops EYE-BOTH DAILY [facility] Last Admin: 05/23/22 08:48 Dose: Not Given Documented By: VAZQUEZ Dorzolamide/Timolol (Dorzolamide/Timolol Ophth 10 Ml) 1 drops EYE-BOTH BID [facility] Last Admin: 05/24/22 09:04 Dose: 1 drops Documented By: [facility] Admin: 05/23/22 20:46 Dose: Not Given Documented By: DOM Enoxaparin Sodium (Enoxaparin 30 Mg/0.3 Ml Syringe) 30 mg SUBCUT DAILY [facility] Enoxaparin Sodium (Enoxaparin 40 Mg/0.4 Ml Syringe) 40 mg SUBCUT DAILY [facility] Last Admin: 05/24/22 09:02 Dose: 40 mg Documented By: Admin: 05/23/22 08:46 Dose: 40 mg Documented By: VAZQUEZ Fluoxetine HCl (Fluoxetine 20 Mg Capsule) 40 mg PO DAILY [facility] Last Admin: 05/24/22 09:01 Dose: 40 mg Documented By: RLH Guaifenesin/Codeine Phosphate (Codeine/Guaifenesin Liquid 5ml Udc) 10 ml PO Q6H PRN PRN Reason: Cough Last Admin: 05/24/22 13:05 Dose: 10 ml Documented By: Admin: 05/24/22 06:27 Dose: 10 ml Documented By: DOM Sodium Chloride (Normal Saline 0.9%) 1,000 mls @ 1,000 mls/hr IV BOLUS ONE Stop: 05/22/22 18:37 Last Infusion: 05/22/22 19:34 Dose: 0 mls/hr Documented By: Admin: 05/22/22 17:57 Dose: 1,000 mls/hr Documented By: ELIAS Ceftriaxone Sodium 1,000 mg/ (Sodium Chloride) 100 mls @ 200 mls/hr IV NOW ONE Stop: 05/22/22 17:43 Last Infusion: 05/22/22 18:32 Dose: 0 mls/hr Documented By: Admin: 05/22/22 17:56 Dose: 200 mls/hr Documented By: ELIAS Azithromycin 500 mg/ Dextrose 250 mls @ 250 mls/hr IV NOW ONE Stop: 05/22/22 17:43 Last Infusion: 05/22/22 19:20 Dose: 0 mls/hr Documented By: Admin: 05/22/22 18:32 Dose: 250 mls/hr Documented By: ELIAS Sodium Chloride (Normal Saline 0.45%) 1,000 mls @ 84 mls/hr IV CONT MECHE Last Admin: 05/23/22 11:48 Dose: 84 mls/hr Documented By: VAZQUEZ Ceftriaxone Sodium 1,000 mg/ (Sodium Chloride) 100 mls @ 200 mls/hr IV Q24H MECHE Stop: 05/26/22 18:44 Last Admin: 05/23/22 18:09 Dose: 200 mls/hr Documented By: VAZQUEZ Azithromycin 500 mg/ Dextrose 250 mls @ 250 mls/hr IV Q24H [facility] Stop: 05/24/22 19:14 Last Admin: 05/23/22 18:46 Dose: 250 mls/hr Documented By: VAZQUEZ Ceftriaxone Sodium 1,000 mg/ (Sodium Chloride) 100 mls @ 200 mls/hr IV NOW ONE Stop: 05/24/22 16:01 Last Admin: 05/24/22 16:00 Dose: 200 mls/hr Documented By: MAYE Azithromycin 500 mg/ Dextrose 250 mls @ 250 mls/hr IV NOW ONE Stop: 05/24/22 17:59 Last Admin: 05/24/22 17:03 Dose: 250 mls/hr Documented By: MAYE Morphine Sulfate (Morphine 4 Mg/Ml Inj) 2 mg IV Q4HR PRN PRN Reason: Pain, Severe (7-10) Naloxone HCl (Naloxone 0.4 Mg/Ml Vial) 0.2 mg IV Q2MIN PRN PRN Reason: Opiate Reversal Naloxone HCl (Naloxone 0.4 Mg/Ml Vial) 0.2 mg IV Q2MIN PRN PRN Reason: Opiate Reversal Ondansetron HCl (Ondansetron 4 Mg/2 Ml Inj) 4 mg IV Q8HR PRN PRN Reason: Nausea And Vomiting Oxybutynin Chloride (Oxybutynin 5 Mg Er Tab) 10 mg PO BEDTIME [facility] Last Admin: 05/23/22 20:46 Dose: Not Given Documented By: Admin: 05/22/22 21:52 Dose: Not Given Documented By: DOM Oxycodone HCl (Oxycodone Ir 5 Mg Tablet) 5 mg PO Q3H PRN PRN Reason: Pain, Moderate (4-6) Pantoprazole Sodium (Pantoprazole Dr 20 Mg Tablet) 20 mg PO DAILY [facility] Last Admin: 05/24/22 09:02 Dose: 20 mg Documented By: Admin: 05/23/22 08:47 Dose: 20 mg Documented By: VAZQUEZ Potassium Chloride (Potassium Chloride 20 Meq/15 Ml Udc) 40 meq PO NOW ONE Stop: 05/23/22 08:01 Last Admin: 05/23/22 08:46 Dose: 40 meq Documented By: VAZQUEZ Zolpidem Tartrate (Zolpidem 5 Mg Tablet) 5 mg PO BEDTIME [facility] Last Admin: 05/22/22 21:51 Dose: 5 mg Documented By: DOM Zolpidem Tartrate (Zolpidem 5 Mg Tablet) 10 mg PO BEDTIME [facility] Last Admin: 05/23/22 20:50 Dose: 10 mg Documented By: DOM Vital Signs Vital signs: Vital Signs - 8 hr 05/22/22 14:19 05/22/22 14:36 05/22/22 14:36 Temperature 98.2 F Pulse Rate 85 Respiratory Rate 18 Blood Pressure 107/65 Pulse Oximetry 92 90 L 97 Oxygen Delivery Method Room Air Room Air Nasal Cannula Oxygen Flow Rate 1 MDM - URI/Sore Throat Lab Data 05/24/22 05:54 05/24/22 05:54 Labs: Lab Results 05/22/22 05/22/22 05/22/22 Range/Units 14:30 14:55 14:55 WBC 11.0 (4.5-11.0) X10^3/uL RBC 4.69 (4.0-5.2) X10^6/uL Hgb 13.9 (12.0-16.0) g/dL Hct 42.3 (36-46) % MCV 90.2 (80-100) fL MCH 29.7 (26-34) PG MCHC 32.9 (30-36) % RDW 13.8 (11.6-14.8) % Plt Count 198 (150-400) X10^3/uL Neut % (Auto) 89.5 H (50-75) % Lymph % (Auto) 5.2 L (25-40) % Cameron % (Auto) 5.0 (3-14) % Eos % (Auto) 0.0 L (2-4) % Baso % (Auto) 0.3 (0-2) % Neut # (Auto) 9800 H (9331-0075) /uL Lymph # (Auto) 600 L (0596-4498) /uL Cameron # (Auto) 600 (0-900) /uL Eos # (Auto) 0 (0-450) /uL Baso # (Auto) 0 (0-100) /uL PT 11.2 (10.1-12.7) SECONDS INR 1.0 (0.9-1.3) APTT 31 (26-36) SECONDS Sodium (137-145) mmol/L Potassium (3.4-5.1) mmol/L Chloride (98-107) mmol/L Carbon Dioxide (22-32) mmol/L BUN (7-17) mg/dL Creatinine (0.52-1.04) mg/dL Estimated GFR (>60) mL/min BUN/Creatinine Ratio (6-22) Glucose (80-110) mg/dL Lactate (0.7-2.1) mmol/L Calcium (8.4-10.2) mg/dL Total Bilirubin (0.2-1.3) mg/dL AST (14-36) IU/L ALT (<35) IU/L Alkaline Phosphatase (38-126) U/L Troponin I (0.01-0.034) ng/mL NT-Pro-B Natriuret Pep (<450) pg/mL Total Protein (6.3-8.2) g/dL Albumin (3.5-5.0) g/dL Globulin (1.7-4.1) g/dL Albumin/Globulin Ratio (1.0-2.8) Lipase (23-300) U/L Procalcitonin (<0.5) ng/mL Urine Color Urine Appearance Urine pH (4.5-8.0) Ur Specific [place] (1.000-1.035) Urine Protein (Negative) Urine Glucose (UA) (Negative) g/dL Urine Ketones (NEGATIVE) Urine Occult Blood (Negative) Urine Nitrate (Negative) Urine Bilirubin (NEGATIVE) Urine Urobilinogen (0.2) E.U./dL Ur Leukocyte Esterase (NEGATIVE) Urine RBC (0-5/HPF) Urine WBC (0-5/HPF) Ur Squamous Epith Cells (0-5/HPF) Amorphous Sediment Urine Bacteria (None) Ur Culture Indicated? SARS-CoV-2 (PCR) Negative (Negative) Influenza A (RT-PCR) Flu a negative (NEGATIVE) Influenza B (RT-PCR) Flu b negative (NEGATIVE) RSV (PCR) Negative (Negative) 05/22/22 05/22/22 05/22/22 Range/Units 14:55 14:55 16:17 WBC (4.5-11.0) X10^3/uL RBC (4.0-5.2) X10^6/uL Hgb (12.0-16.0) g/dL Hct (36-46) % MCV (80-100) fL MCH (26-34) PG MCHC (30-36) % RDW (11.6-14.8) % Plt Count (150-400) X10^3/uL Neut % (Auto) (50-75) % Lymph % (Auto) (25-40) % Cameron % (Auto) (3-14) % Eos % (Auto) (2-4) % Baso % (Auto) (0-2) % Neut # (Auto) (1832-8044) /uL Lymph # (Auto) (1358-4101) /uL Cameron # (Auto) (0-900) /uL Eos # (Auto) (0-450) /uL Baso # (Auto) (0-100) /uL PT (10.1-12.7) SECONDS INR (0.9-1.3) APTT (26-36) SECONDS Sodium 131 L (137-145) mmol/L Potassium 3.8 (3.4-5.1) mmol/L Chloride 95 L (98-107) mmol/L Carbon Dioxide 25 (22-32) mmol/L BUN 13 (7-17) mg/dL Creatinine 0.72 (0.52-1.04) mg/dL Estimated GFR > 60 (>60) mL/min BUN/Creatinine Ratio 18.1 (6-22) Glucose 133 H (80-110) mg/dL Lactate 1.1 (0.7-2.1) mmol/L Calcium 8.2 L (8.4-10.2) mg/dL Total Bilirubin 0.5 (0.2-1.3) mg/dL AST 42 H (14-36) IU/L ALT 26 (<35) IU/L Alkaline Phosphatase 88 (38-126) U/L Troponin I 0.052 H (0.01-0.034) ng/mL NT-Pro-B Natriuret Pep 840 H (<450) pg/mL Total Protein 6.7 (6.3-8.2) g/dL Albumin 3.9 (3.5-5.0) g/dL Globulin 2.8 (1.7-4.1) g/dL Albumin/Globulin Ratio 1.4 (1.0-2.8) Lipase 14 L (23-300) U/L Procalcitonin 1.42 H (<0.5) ng/mL Urine Color Yellow Urine Appearance Clear Urine pH 6.0 (4.5-8.0) Ur Specific [place] 1.015 (1.000-1.035) Urine Protein Negative (Negative) Urine Glucose (UA) Negative (Negative) g/dL Urine Ketones 2+ H (NEGATIVE) Urine Occult Blood 1+ H (Negative) Urine Nitrate Negative (Negative) Urine Bilirubin Negative (NEGATIVE) Urine Urobilinogen 0.2 (0.2) E.U./dL Ur Leukocyte Esterase Negative (NEGATIVE) Urine RBC 1-5/hpf (0-5/HPF) Urine WBC 1-5/hpf (0-5/HPF) Ur Squamous Epith Cells 1-5 /hpf D (0-5/HPF) Amorphous Sediment 1+ Urine Bacteria Few (2-10) H (None) Ur Culture Indicated? Specimen cultured SARS-CoV-2 (PCR) (Negative) Influenza A (RT-PCR) (NEGATIVE) Influenza B (RT-PCR) (NEGATIVE) RSV (PCR) (Negative) 05/22/22 Range/Units 18:30 WBC (4.5-11.0) X10^3/uL RBC (4.0-5.2) X10^6/uL Hgb (12.0-16.0) g/dL Hct (36-46) % MCV (80-100) fL MCH (26-34) PG MCHC (30-36) % RDW (11.6-14.8) % Plt Count (150-400) X10^3/uL Neut % (Auto) (50-75) % Lymph % (Auto) (25-40) % Cameron % (Auto) (3-14) % Eos % (Auto) (2-4) % Baso % (Auto) (0-2) % Neut # (Auto) (7515-6736) /uL Lymph # (Auto) (9935-7185) /uL Cameron # (Auto) (0-900) /uL Eos # (Auto) (0-450) /uL Baso # (Auto) (0-100) /uL PT (10.1-12.7) SECONDS INR (0.9-1.3) APTT (26-36) SECONDS Sodium (137-145) mmol/L Potassium (3.4-5.1) mmol/L Chloride (98-107) mmol/L Carbon Dioxide (22-32) mmol/L BUN (7-17) mg/dL Creatinine (0.52-1.04) mg/dL Estimated GFR (>60) mL/min BUN/Creatinine Ratio (6-22) Glucose (80-110) mg/dL Lactate (0.7-2.1) mmol/L Calcium (8.4-10.2) mg/dL Total Bilirubin (0.2-1.3) mg/dL AST (14-36) IU/L ALT (<35) IU/L Alkaline Phosphatase (38-126) U/L Troponin I 0.052 H (0.01-0.034) ng/mL NT-Pro-B Natriuret Pep (<450) pg/mL Total Protein (6.3-8.2) g/dL Albumin (3.5-5.0) g/dL Globulin (1.7-4.1) g/dL Albumin/Globulin Ratio (1.0-2.8) Lipase (23-300) U/L Procalcitonin (<0.5) ng/mL Urine Color Urine Appearance Urine pH (4.5-8.0) Ur Specific [place] (1.000-1.035) Urine Protein (Negative) Urine Glucose (UA) (Negative) g/dL Urine Ketones (NEGATIVE) Urine Occult Blood (Negative) Urine Nitrate (Negative) Urine Bilirubin (NEGATIVE) Urine Urobilinogen (0.2) E.U./dL Ur Leukocyte Esterase (NEGATIVE) Urine RBC (0-5/HPF) Urine WBC (0-5/HPF) Ur Squamous Epith Cells (0-5/HPF) Amorphous Sediment Urine Bacteria (None) Ur Culture Indicated? SARS-CoV-2 (PCR) (Negative) Influenza A (RT-PCR) (NEGATIVE) Influenza B (RT-PCR) (NEGATIVE) RSV (PCR) (Negative) Imaging Data Chest x-ray: Radiologist's Impression: PROCEDURE:? XR CHEST 1V ? INDICATIONS:? suspected sepsis ? TECHNIQUE:? One view of the chest was acquired.? ? COMPARISON:? [facility], , XR CHEST 1V, 01/11/2021, 19:39. ? FINDINGS:? ? Surgical changes and devices:? None.? ? Lungs and pleura:? Right lower lobe infiltrate consistent with pneumonia.? No pleural effusions or pneumothorax.? ? Mediastinum:? Mediastinal contours appear normal.? Heart size is normal.? ? Bones and chest wall:? No suspicious bony lesions.? Overlying soft tissues appear unremarkable.? ? IMPRESSION:? Right lower lobe pneumonia. ? ? Dictated by: Alessandro Soto M.D. on 05/22/2022 at 15:00 ? ? Approved by: Alessandro Soto M.D. on 05/22/2022 at 15:14 ECG Data Interpretation: Sinus rhythm rate 93 ID interval 150 QRS [address] changes no T-wave inversions, similar to previous EKG MDM Narrative Medical decision making narrative: Patient is an 82-year-old female who presents today with increasing weakness after starting antibiotic for UTI. She is definitely more short of breath requiring oxygen 1 L. X-ray does show right lower lobe pneumonia. She does report a cough. She is no significant leukocytosis. She does have an elevated procalcitonin 1.4 with a lactate of 1 1. She is hypotensive tachycardic or on a beta-danielle. She is afebrile here in the emergency department. She does have evidence of infection probable both UTI and pneumonia. She was previously on Macrobid she is now given 1 L of fluid Rocephin and Zithromax. Still requiring 0.5-1 L of oxygen. Discharge Plan Departure Patient Disposition: Admitted As Inpatient Clinical Impression: Pneumonia Admit Date/Time: 05/22/22 18:30 Admit Provider: Elie Bolaños
[2022-05-22 16:27] LABS: Appearance Urine UA CLEAR; Bilirubin Urine UA NEGATIVE (NEGATIVE); Color Urine UA YELLOW; Glucose Urine UA NEGATIVE (Negative); Ketones Urine UA 2+ (NEGATIVE); Leukocyte Esterase Urine UA NEGATIVE (NEGATIVE); Nitrite Urine UA NEGATIVE (Negative); Occult Blood Urine UA 1+ (Negative); Protein Urine UA NEGATIVE (Negative); Specific Gravity Urine UA 1.015 (1.000-1.035); Urobilinogen Urine UA 0.2 E.U./dL (0.2)
[2022-05-22 16:39] LABS: Amorphous Sediment Urine 1+; Bacteria Urine Few (2-10); Culture Indicated Urine Specimen Cultured; RBC Urine 1-5/HPF (0-5/HPF); Squamous Epithelial Cell Urine 1-5 /HPF (0-5/HPF); WBC Urine 1-5/HPF (0-5/HPF)
[2022-05-22] MEDS: cefTRIAXone 1,000 MG in SODIUM CHLORIDE 0.9% 100 ML 200 MG IV (17:56)
[2022-05-22] MEDS: SODIUM CHLORIDE 0.9% 1,000 ML 1000 ML IV (17:57)
[2022-05-22] MEDS: AZITHROMYCIN 500 MG in DEXTROSE 5% IN WATER 250 ML 250 MG IV (18:32)
[2022-05-22 19:03] LABS: Troponin I 0.052 ng/mL (0.01-0.034)
[2022-05-22] MEDS: ZOLPIDEM 5 MG TABLET PO (21:51)
[2022-05-22] MEDS: HYDROCODONE/ACET 5/325 TABLET 1 TAB PO (21:51)
[2022-05-23 00:33] VITALS: BP 126/69; PULSE 87; RESP 20; TEMP 37.4; O2SAT 97
[2022-05-23] MEDS: HYDROCODONE/ACET 5/325 TABLET 1 TAB PO ×4 (03:38→20:50)
[2022-05-23] MEDS: ALPRAZolam 0.25 MG TABLET PO (03:46)
[2022-05-23 05:42] LABS: Add Manual Diff / Slide Review NO; Basophils Absolute Auto 0 /uL (0-100); Basophils Percent Auto 0.1 % (0-2); Eosinophils Absolute Auto 0 /uL (0-450); Hematocrit 38.3 % (36-46); Hemoglobin 12.7 g/dL (12.0-16.0); Lymphocytes Absolute Auto 1400 /uL (1100-4500); Lymphocytes Percent Auto 11.5 % (25-40); Mean Corpuscular HGB Conc 33.2 % (30-36); Mean Corpuscular Hemoglobin 29.6 PG (26-34); Mean Corpuscular Volume 89.3 fL (80-100); Monocytes Absolute Auto 600 /uL (0-900); Monocytes Percent Auto 4.6 % (3-14); Neutrophils Absolute Auto 10200 /uL (1500-7000); Neutrophils Percent Auto 83.8 % (50-75); Platelet Count 182 X10^3/uL (150-400); Red Blood Cell Count 4.29 X10^6/uL (4.0-5.2); Red Cell Distribution Width 13.6 % (11.6-14.8); White Blood Cell Count 12.2 X10^3/uL (4.5-11.0)
[2022-05-23 05:49] LABS: Alanine Aminotransferase 20 IU/L (<35); Albumin 3.1 g/dL (3.5-5.0); Albumin Globulin Ratio 1.2 (1.0-2.8); Alkaline Phosphatase 71 U/L (38-126); Aspartate Aminotransferase 22 IU/L (14-36); BUN Creatinine Ratio 20.6 (6-22); Bilirubin Total 0.5 mg/dL (0.2-1.3); Blood Urea Nitrogen 13 mg/dL (7-17); Calcium 7.8 mg/dL (8.4-10.2); Carbon Dioxide 25 mmol/L (22-32); Chloride 99 mmol/L (98-107); Estimated Glomerular Filt Rate > 60 mL/min (>60); Globulin 2.5 g/dL (1.7-4.1); Glucose 107 mg/dL (80-110); HEMOLYSIS < 15 (0-50); Potassium 3.4 mmol/L (3.4-5.1); Sodium 130 mmol/L (137-145); Total Protein 5.6 g/dL (6.3-8.2)
[2022-05-23 06:00] VITALS: BP 117/64; PULSE 77; RESP 18; TEMP 37.1; O2SAT 99
--- NOTE | 2022-05-23 06:12 | PC.NURSE ---
Admit/NOC Shift Note- Patient arrived to room via stretcher at 1930 from ER. Patient alert and oriented and able to make needs known to staff. Admit questions done, physical assessment done, home meds reviewed, and skin check completed. Patient oriented to bed and bed controls, room, lights, bathroom, phone, menu, and call delgadillo/TV remote. Safety measures in place. Patient agrees to call for assistance. Bed alarm activated. Call delgadillo and phone within reach. Will continue to monitor.
[2022-05-23] MEDS: ENOXAPARIN 40 MG/0.4 ML SYRINGE SUBCUT (08:46)
[2022-05-23] MEDS: POTASSIUM CHLORIDE 20 MEQ/15 ML UDC 40 MEQ PO (08:46)
[2022-05-23] MEDS: CELECOXIB 200 MG CAPSULE PO (08:47)
[2022-05-23] MEDS: PANTOPRAZOLE DR 20 MG TABLET PO (08:47)
--- NOTE | 2022-05-23 08:52 | CM.DANOTE ---
Addendum entered by Renea Huang R.N. 05/23/22 11:46: Dr. Bolaños came by after seeing patient today. He anticipates that she will be here at least another day, possibly until Wednesday. He stated that he would be putting in P.T. orders. He mentioned that patient may benefit with home health, may be somewhat deconditioned. Let him know that this DC Visual Coordinator can discuss with patient. Did meet with patient bringing in the ipad with home health agencies in her area. She does not want, stated, her had the service, she can care for herself, can take her own showers. Let her know that if she changes her mind, can let care management know, stated, she will not change her mind. P.T. will be working with her. Original Note: DCP: Case received, EMR reviewed and met with patient. Introduced self and role. Was able to obtain information regarding patient's baseline activity status prior to hospitalization. DCP assessment completed with information currently available. Patient is an 82 year old female who admitted yesterday afternoon to the care of the hospitalist team. PCP: Dr. Bolaños. Payer: confirmed: [facility]. Patient came to the hospital via private vehicle secondary to having increased shortness of breath, weakness, and fatigue. Notes indicate that patient was recently seen by her provider and treated with Macrobid for UTI. Patient was placed on a liter of oxygen. She was diagnosed with Pneumonia/UTI. Met with patient in her room. She is alert and oriented, and was sitting up in bed, oxygen in place. Confirmed that she resides in [place] with spouse, Aaron. At her baseline, she uses a cane, she only drives for short distances, her spouse or family can drive her to appointments as well. She indicated that her spouse had been here recently for a smashed foot. P: DCP to continue to follow. Patient hopes to be able to go home soon, has not yet seen provider. Plan is home when deemed medically stable. Renea Huang RN/Green House Manager Discharge Planning/Care Management CM Discharge Assessment Start: 05/23/22 08:50 Freq: Status: Active Protocol: Document 05/23/22 08:50 (Rec: 05/23/22 08:52 [id number]) Discharge Planning Assessment Assigned Supervisor [employer] Renea Huang RN/Green House Manager Advance Directives? Yes: POLST Advance Directives on File Yes History Provided By Patient,Medical Record Prior Living Arrangements House Household Members spouse Type of transporation used prior to Drives own vehicle admit Comment Patient only drives short distances Independent with ADL's Yes Is patient alert and oriented? Yes Needs Assistance With Home Chores / Shopping DME Already Rented / Owned Cane Barriers to Discharge No Discharge Plan Home Transportation Arrangement Spouse or other family member Referrals Initiated None needed Whiteboard Updated in Patient Room with Yes name and ext. # of Supervisor [employer] Review Status In Process Next Review Type Continued Stay Review
[2022-05-23 09:00] VITALS: BP 103/61; PULSE 85; RESP 16; TEMP 36.7; O2SAT 95
--- NOTE | 2022-05-23 11:37 | P.HP_ITS ---
History of Present Illness History of Present Illness Date Patient Seen: 05/23/22 Time Patient Seen: 11:37 Date of Onset of Symptoms: 05/18/22 Chief complaint: possible pnemonia t-3 Narrative: CC: short of breath PT presented to ED yesterday with worsening shortness of breath and cough over the last week treated for UTI a week ago with ciprofloxacin which should have helped against pneumonia too however she continued to decline treated for pneumonia in ED with some light supplemental oxygen fluids and iv abx this morning feeling a bit better but still weak little appetite poor energy able to get to the bathroom Patient History Family & Social History Social History: household members spouse Prior Living Arrangements House Safety & Behavioral: Feels Safe in Current Yes Environment Been Physically Hurt or No Threatened By a Person Tobacco & Substance use: Smoking Status Never smoker alcohol intake current alcohol intake frequency other Substance Use Type does not use Meds Home Medications and Allergies Home Medications Medication Instructions Recorded Confirmed Type alprazolam 0.25 mg tablet 0.25 mg PO PRN ##0 02/16/11 05/22/22 History brimonidine 0.2 % eye drops 1 drp EYE-BOTH DAILY 05/22/22 05/22/22 History celecoxib 200 mg capsule 200 mg PO DAILY 05/22/22 05/22/22 History dorzolamide 22.3 mg-timolol 6.8 1 drp EYE-BOTH DAILY 05/22/22 05/22/22 History mg/mL eye drops hydrocodone 5 mg-acetaminophen 325 5 - 325 tab PO Q4H PRN Pain (Scale 05/22/22 05/22/22 History mg tablet Score 4-6) omeprazole 20 mg capsule,delayed 20 mg PO DAILY 05/22/22 05/22/22 History release trospium 60 mg capsule,extended 60 mg PO BEDTIME 05/22/22 05/22/22 History release 24 hr zolpidem 12.5 mg tablet,extended 12.5 mg PO DAILY 05/22/22 05/22/22 History release,multiphase Allergies Allergy/AdvReac Type Severity Reaction Status Date / Time Sulfa (Sulfonamide Allergy Severe ITCHY AND Verified 05/22/22 14:23 Antibiotics) SOB Review of Systems Review of Systems Narrative: all systems reviewed and negative except as otherwise documented in HPI Exam Vital Signs (past 8 hours): - 05/23/22 06:00 05/23/22 09:00 Temperature 98.7 F 98.1 F Pulse Rate 77 85 Respiratory Rate 18 16 Blood Pressure 117/64 103/61 Pulse Oximetry 99 95 Oxygen Flow Rate 0.5 Fraction of Inspired Oxygen 24 Oxygen Delivery Method Nasal Cannula Oxygen Flow Rate 0.5 Narrative Exam Narrative: alert but subdued elder Const Nutritional Appearance: thin HENMT Head: normocephalic and atraumatic Eyes General: appearance normal, both eyes and all related structures Resp Other: moving air ok, upper rhonchorous cough, more clear to auscultation in lower quadrants Cardio Other: regular rate and rhythm, S1/S2 GI Other: soft nontender nondistended Skin General: no rashes or lesions noted Extrem General: full ROM and no pedal edema Objective Labs 05/23/22 05:26 05/23/22 05:26 Labs: Laboratory Results - last 24 hr 05/22/22 05/22/22 05/22/22 14:30 14:55 14:55 WBC 11.0 RBC 4.69 Hgb 13.9 Hct 42.3 MCV 90.2 MCH 29.7 MCHC 32.9 RDW 13.8 Plt Count 198 Neut % (Auto) 89.5 H Lymph % (Auto) 5.2 L [place] % (Auto) 5.0 Eos % (Auto) 0.0 L Baso % (Auto) 0.3 Neut # (Auto) 9800 H Lymph # (Auto) 600 L [place] # (Auto) 600 Eos # (Auto) 0 Baso # (Auto) 0 PT 11.2 INR 1.0 APTT 31 Sodium Potassium Chloride Carbon Dioxide BUN Creatinine Estimated GFR BUN/Creatinine Ratio Glucose Lactate Calcium Total Bilirubin AST ALT Alkaline Phosphatase Troponin I NT-Pro-B Natriuret Pep Total Protein Albumin Globulin Albumin/Globulin Ratio Lipase Procalcitonin Urine Color Urine Appearance Urine pH Ur Specific [place] Urine Protein Urine Glucose (UA) Urine Ketones Urine Occult Blood Urine Nitrate Urine Bilirubin Urine Urobilinogen Ur Leukocyte Esterase Urine RBC Urine WBC Ur Squamous Epith Cells Amorphous Sediment Urine Bacteria Ur Culture Indicated? SARS-CoV-2 (PCR) Negative Influenza A (RT-PCR) Flu a negative Influenza B (RT-PCR) Flu b negative RSV (PCR) Negative 05/22/22 05/22/22 05/22/22 14:55 14:55 16:17 WBC RBC Hgb Hct MCV MCH MCHC RDW Plt Count Neut % (Auto) Lymph % (Auto) [place] % (Auto) Eos % (Auto) Baso % (Auto) Neut # (Auto) Lymph # (Auto) [place] # (Auto) Eos # (Auto) Baso # (Auto) PT INR APTT Sodium 131 L Potassium 3.8 Chloride 95 L Carbon Dioxide 25 BUN 13 Creatinine 0.72 Estimated GFR > 60 BUN/Creatinine Ratio 18.1 Glucose 133 H Lactate 1.1 Calcium 8.2 L Total Bilirubin 0.5 AST 42 H ALT 26 Alkaline Phosphatase 88 Troponin I 0.052 H NT-Pro-B Natriuret Pep 840 H Total Protein 6.7 Albumin 3.9 Globulin 2.8 Albumin/Globulin Ratio 1.4 Lipase 14 L Procalcitonin 1.42 H Urine Color Yellow Urine Appearance Clear Urine pH 6.0 Ur Specific [place] 1.015 Urine Protein Negative Urine Glucose (UA) Negative Urine Ketones 2+ H Urine Occult Blood 1+ H Urine Nitrate Negative Urine Bilirubin Negative Urine Urobilinogen 0.2 Ur Leukocyte Esterase Negative Urine RBC 1-5/hpf Urine WBC 1-5/hpf Ur Squamous Epith Cells 1-5 /hpf D Amorphous Sediment 1+ Urine Bacteria Few (2-10) H Ur Culture Indicated? Specimen cultured SARS-CoV-2 (PCR) Influenza A (RT-PCR) Influenza B (RT-PCR) RSV (PCR) 05/22/22 05/23/22 05/23/22 18:30 05:26 05:26 WBC 12.2 H RBC 4.29 Hgb 12.7 Hct 38.3 MCV 89.3 MCH 29.6 MCHC 33.2 RDW 13.6 Plt Count 182 Neut % (Auto) 83.8 H Lymph % (Auto) 11.5 L [place] % (Auto) 4.6 Eos % (Auto) 0.0 L Baso % (Auto) 0.1 Neut # (Auto) 09317 H Lymph # (Auto) 1400 [place] # (Auto) 600 Eos # (Auto) 0 Baso # (Auto) 0 PT INR APTT Sodium 130 L Potassium 3.4 Chloride 99 Carbon Dioxide 25 BUN 13 Creatinine 0.63 Estimated GFR > 60 BUN/Creatinine Ratio 20.6 Glucose 107 Lactate Calcium 7.8 L Total Bilirubin 0.5 AST 22 ALT 20 Alkaline Phosphatase 71 Troponin I 0.052 H NT-Pro-B Natriuret Pep Total Protein 5.6 L Albumin 3.1 L Globulin 2.5 Albumin/Globulin Ratio 1.2 Lipase Procalcitonin Urine Color Urine Appearance Urine pH Ur Specific [place] Urine Protein Urine Glucose (UA) Urine Ketones Urine Occult Blood Urine Nitrate Urine Bilirubin Urine Urobilinogen Ur Leukocyte Esterase Urine RBC Urine WBC Ur Squamous Epith Cells Amorphous Sediment Urine Bacteria Ur Culture Indicated? SARS-CoV-2 (PCR) Influenza A (RT-PCR) Influenza B (RT-PCR) RSV (PCR) Assessment & Plan Assessment & Plan narrative: #RLL Pneumonia, community acquired, failed outpt tx Pt was treated outpatient for UTI with cipro prior to coming in which should have covered both however she continued to declined recieved azithromycin and rocephin yesterdaty looking better today able to take of oxygen NC encourage hydration and appetite will likely require 3 days of iv abx #insomnia #chronic pain #anxiety a/w depression stable controlled issues, continue fluoxetine and prns #GERD stable continue PPI Dispo: admit inpatient, maybe home tomorrow or wednesday MDM: jimena Walker Code: DNR Diet: Regular Time Spent With Patient Critical Care time: I spent a total of [] minutes of critical care time on this patient's care today; this time is exclusive of procedural time. Quality VTE Deep Vein Thrombosis/Pulmonary Embolism Present on Admission: No
[2022-05-23] MEDS: SODIUM CHLORIDE 0.45% 1,000 ML 84 ML IV (11:48)
[2022-05-23 15:32] VITALS: BP 130/76; PULSE 66; RESP 18; TEMP 36.4; O2SAT 96
--- NOTE | 2022-05-23 15:45 | OT.IPNOTE ---
Pt just got back to bed after PT eval and able to talk to the pt regarding OT needs. Pt states has no OT needs and aware that she should try to slow down, have more rest breaks, and to take better care of herself. Able to give pt energy conservation information, discharge pt from OT needs.
[2022-05-23] MEDS: cefTRIAXone 1,000 MG in SODIUM CHLORIDE 0.9% 100 ML 200 MG IV (18:09)
[2022-05-23] MEDS: AZITHROMYCIN 500 MG in DEXTROSE 5% IN WATER 250 ML 250 MG IV (18:46)
[2022-05-23 19:00] VITALS: BP 115/70; PULSE 69; RESP 18; TEMP 37.1; O2SAT 95
[2022-05-23] MEDS: ZOLPIDEM 5 MG TABLET 10 MG PO (20:50)
[2022-05-24] VITALS: BP 123/71; PULSE 65; RESP 18; TEMP 36.9; O2SAT 98
[2022-05-24] MEDS: ALPRAZolam 0.25 MG TABLET PO (05:16)
[2022-05-24] MEDS: HYDROCODONE/ACET 5/325 TABLET 1 TAB PO ×3 (05:16→13:06)
[2022-05-24 06:00] VITALS: BP 110/62; PULSE 62; RESP 18; TEMP 36.9; O2SAT 93
[2022-05-24 06:03] LABS: Add Manual Diff / Slide Review NO; Basophils Absolute Auto 0 /uL (0-100); Basophils Percent Auto 0.2 % (0-2); Eosinophils Absolute Auto 100 /uL (0-450); Eosinophils Percent Auto 0.7 % (2-4); Hematocrit 35.6 % (36-46); Lymphocytes Absolute Auto 1900 /uL (1100-4500); Lymphocytes Percent Auto 23.8 % (25-40); Mean Corpuscular HGB Conc 33.7 % (30-36); Mean Corpuscular Hemoglobin 29.8 PG (26-34); Mean Corpuscular Volume 88.2 fL (80-100); Monocytes Absolute Auto 400 /uL (0-900); Monocytes Percent Auto 4.8 % (3-14); Neutrophils Absolute Auto 5600 /uL (1500-7000); Neutrophils Percent Auto 70.5 % (50-75); Platelet Count 196 X10^3/uL (150-400); Red Blood Cell Count 4.04 X10^6/uL (4.0-5.2); Red Cell Distribution Width 14.1 % (11.6-14.8); White Blood Cell Count 7.9 X10^3/uL (4.5-11.0)
[2022-05-24 06:14] LABS: Alanine Aminotransferase 19 IU/L (<35); Albumin 3.2 g/dL (3.5-5.0); Albumin Globulin Ratio 1.2 (1.0-2.8); Alkaline Phosphatase 79 U/L (38-126); Aspartate Aminotransferase 20 IU/L (14-36); BUN Creatinine Ratio 20.3 (6-22); Bilirubin Total 0.4 mg/dL (0.2-1.3); Blood Urea Nitrogen 15 mg/dL (7-17); Calcium 8.1 mg/dL (8.4-10.2); Carbon Dioxide 23 mmol/L (22-32); Chloride 100 mmol/L (98-107); Estimated Glomerular Filt Rate > 60 mL/min (>60); Globulin 2.7 g/dL (1.7-4.1); Glucose 91 mg/dL (80-110); HEMOLYSIS < 15 (0-50); Potassium 3.8 mmol/L (3.4-5.1); Sodium 130 mmol/L (137-145); Total Protein 5.9 g/dL (6.3-8.2)
[2022-05-24] MEDS: CODEINE/GUAIFENESIN LIQUID 5ML UDC 10 ML PO ×2 (06:27→13:05)
[2022-05-24] MEDS: CELECOXIB 200 MG CAPSULE PO (09:01)
[2022-05-24] MEDS: FLUoxetine 20 MG CAPSULE 40 MG PO (09:01)
[2022-05-24] MEDS: ENOXAPARIN 40 MG/0.4 ML SYRINGE SUBCUT (09:02)
[2022-05-24] MEDS: PANTOPRAZOLE DR 20 MG TABLET PO (09:02)
[2022-05-24] MEDS: BRIMONIDINE 0.2% OPHTH 5 ML 1 DROPS EYE-BOTH (09:03)
[2022-05-24] MEDS: DORZOLAMIDE/TIMOLOL OPHTH 10 ML 1 DROPS EYE-BOTH (09:04)
--- NOTE | 2022-05-24 09:42 | PC.NURSE ---
0730 pt dtr bay trying to get him oob to void, staff quickly intervened and explained pt mobility changes and he is to weak and not safe at this time. Pt turned and brief changed. in shortly after this convo and answering family questions. pt alert and oriented x1 calm coop, bed alarm on, call light within reach.
--- NOTE | 2022-05-24 10:06 | PC.NURSE ---
Pt aox4 up to bathroom with min assist and using her bejeweled cane, ra 96% denies sob loose cough noted no distress, Dr. Bolaños here to see pt 1000
[2022-05-24 10:34] VITALS: BP 125/66; PULSE 59; RESP 16; TEMP 36.3; O2SAT 95
--- NOTE | 2022-05-24 10:38 | P.DS_ITS ---
History of Present Illness History of Present Illness Date Patient Seen: 05/24/22 Time Patient Seen: 10:38 Date of Onset of Symptoms: 05/20/22 Chief complaint: possible pnemonia t-3 Narrative: CC: I feel better feeling stronger ate full breakfast discussed incentive spirometery use she can manage about 1000 mL that's it granddaughter available to supervise discharge this afternoon and help at home Discharge Providers Provider Date of admission: 05/22/22 18:30 Discharge Date: 05/24/22 Primary care physician: Elie Bolaños MD Consults: 05/23/22 11:36 Consult to Occupational Therapy Evaluate & Treat Comment: Physician Instructions: Evaluate and treat Consult to Physical Therapy Evaluate & Treat Comment: Physician Instructions: Evaluate and Treat Discharge provider: Elie Bolaños MD Summary Hospital Course Discharge Diagnosis: #RLL Pneumonia, community acquired, failed outpt tx #insomnia #chronic pain #anxiety a/w depression #GERD Hospital Course: PT presented to ED with worsening shortness of breath and cough over the prior week treated for UTI a week ago with ciprofloxacin which should have helped against pneumonia too however she continued to decline treated for pneumonia in ED with some light supplemental oxygen fluids and iv abx admitted and improved by DoD ambulating without O2 eating and drinking ok - will d/c home to f/u as outpt Status at Discharge Cognitive/behavioral status at discharge: at baseline, oriented Functional status at discharge: independent ambulation Overall status at discharge: patient is progressing back to baseline Exam Vital Signs (past 8 hours): - 05/24/22 06:00 05/24/22 10:34 Temperature 98.4 F 97.4 F L Pulse Rate 62 59 L Respiratory Rate 18 16 Blood Pressure 110/62 125/66 Pulse Oximetry 93 95 Oxygen Flow Rate 0 Fraction of Inspired Oxygen 24 Oxygen Delivery Method Room Air Oxygen Flow Rate 0 Narrative Exam Narrative: cheerful elder sitting in bed nibbling on bear claw with graddaughter at bedside Const General: cooperative, comfortable and well developed [facility] Head: normocephalic and atraumatic Eyes General: appearance normal, both eyes and all related structures Resp Other: moving air well, some crackles on R side evident worse in base otherwise clear Cardio Other: regular rate and rhythm, S1/S2 GI Other: soft nontender nondistended Skin General: no rashes or lesions noted and turgor normal Neuro General: patient alert, patient awake, patient oriented x3, tone normal, moves all extremities and no focal motor deficits Extrem General: full ROM and no pedal edema Objective Labs 05/24/22 05:54 05/24/22 05:54 Labs: Laboratory Results - last 24 hr 05/24/22 05/24/22 05:54 05:54 WBC 7.9 RBC 4.04 Hgb 12.0 Hct 35.6 L MCV 88.2 MCH 29.8 MCHC 33.7 RDW 14.1 Plt Count 196 Neut % (Auto) 70.5 Lymph % (Auto) 23.8 L [place] % (Auto) 4.8 Eos % (Auto) 0.7 L Baso % (Auto) 0.2 Neut # (Auto) 5600 Lymph # (Auto) 1900 [place] # (Auto) 400 Eos # (Auto) 100 Baso # (Auto) 0 Sodium 130 L Potassium 3.8 Chloride 100 Carbon Dioxide 23 BUN 15 Creatinine 0.74 Estimated GFR > 60 BUN/Creatinine Ratio 20.3 Glucose 91 Calcium 8.1 L Total Bilirubin 0.4 AST 20 ALT 19 Alkaline Phosphatase 79 Total Protein 5.9 L Albumin 3.2 L Globulin 2.7 Albumin/Globulin Ratio 1.2 PFSH Social History household members: spouse Smoking Status: Never smoker alcohol intake: current Discharge Assessment & Plan Assessment and Plan Assessment: #RLL Pneumonia, community acquired, failed outpt tx Pt was treated outpatient for UTI with cipro prior to coming in which should have covered both however she continued to declined recieved azithromycin and rocephin IV for three days q24hr feeling better by DoD able to ambulate without supplemental O2 eating well still has nasty cough will send in some slyrup for sleep encourage hydration and appetite continue 2 more days of azithromycin 500mg po as outpt #insomnia #chronic pain #anxiety a/w depression stable controlled issues, continue fluoxetine and prns #GERD stable continue PPI Dispo: home after 3rd doses of abx MDM: Aaron Code: DNR Diet: Regular time spent: 55 min Discharge Plan Discharge Plan Patient Disposition: Home Discharge orders & Medications Prescriptions: Continued alprazolam 0.25 MG tablet 0.25 mg PO PRN Qty: 0 celecoxib 200 mg capsule 200 mg PO DAILY Patient Comments: Take 1 capsule by mouth once a day brimonidine 0.2 % drops 1 drp EYE-BOTH DAILY dorzolamide-timolol 22.3-6.8 mg/mL drops 1 drp EYE-BOTH DAILY zolpidem 12.5 mg tablet,ext release multiphase 12.5 mg PO DAILY Patient Comments: Take 1 tablet by mouth every night as needed ok to fill 06/18/2022 (#2 of 3) trospium 60 mg capsule,extended release 24hr 60 mg PO BEDTIME hydrocodone-acetaminophen 5-325 mg tablet 5 - 325 tab PO Q4H PRN (Reason: Pain (Scale Score 4-6)) omeprazole 20 mg capsule,delayed release(DR/EC) 20 mg PO DAILY Follow up/Referrals: Elie Bolaños MD [Primary Care Provider] - Visit Report/Discharge Packet Stand Alone Forms: Patient Portal/API, Stroke Signs & Symptoms Discharge Data Primary Care Provider: Elie Bolaños Quality VTE Deep Vein Thrombosis/Pulmonary Embolism Present on Admission: No
[2022-05-24] MEDS: cefTRIAXone 1,000 MG in SODIUM CHLORIDE 0.9% 100 ML 200 MG IV (16:00)
[2022-05-24] MEDS: AZITHROMYCIN 500 MG in DEXTROSE 5% IN WATER 250 ML 250 MG IV (17:03)
== END 2022-05-24 18:00 | disposition home or self-care (01) | DRG 195 ==
LOC: ED 18:21 → AC 05-23 11:22
PROVIDERS: Admitting Provider Family Medicine; Emergency Provider Emergency Medicine; PCP Family Medicine; Referring Provider Emergency Medicine; Visit Provider Family Medicine
DX: J18.9 Pneumonia, unspecified organism (principal); G47.00 Insomnia, unspecified; G89.29 Other chronic pain; F41.9 Anxiety disorder, unspecified; F32.A Depression, unspecified; K21.9 Gastro-esophageal reflux disease without esophagitis; Z20.822 Contact with and (suspected) exposure to COVID-19
CPT/HCPCS: 0241U; 36415; 71045; 80053; 81001; 83605; 83690; 83880; 84145; 84484; 85025; 85610; 85730; 87040; 87086; 93005; 93010; 96365; 96367; 97161; 99284; G0378; J0696; J1650; J7050

== ENCOUNTER 2024-09-25 11:50 | Emergency (ER) | payer OTHER, SELFPAY ==
[2022-05-22 20:03] VITALS: BMI 20.1
[2024-09-25] VITALS (7 sets, daily range): BP systolic 114–126; BP diastolic 56–70; PULSE 70–98; RESP 14–19; TEMP 37.7; O2SAT 96–98; BMI 18.5
--- NOTE | 2024-09-25 12:20 | EKG_ITS ---
[facility] [address] [place] [address] Test Date: 2024-09-25 Pat Name: Mary Paz Department: [facility] Room: Gender: Female General Store Manager: LASHAE : 1940 Requested By: Order Number: [id number] Reading MD: Sylvester Senior Measurements Intervals [place] Rate: 94 P: 41 GA: 164 QRS: -41 QRSD: 72 T: 64 QT: 394 QTc: 492 Interpretive Statements Sinus rhythm with premature atrial complexes Left axis deviation Septal infarct , age undetermined ST & T wave abnormality, consider anterior ischemia Electronically Signed On 09-27-2024 13:50:36 PDT by Sylvester Senior
[2024-09-25 12:40] LABS: Add Manual Diff / Slide Review NO; Hematocrit 33.7 % (36-46); Hemoglobin 11.0 g/dL (12.0-16.0); Lymphocytes Absolute Auto 400 /uL (1100-4500); Mean Corpuscular HGB Conc 32.7 % (30-36); Mean Corpuscular Hemoglobin 28.6 PG (26-34); Mean Corpuscular Volume 87.6 fL (80-100); Platelet Count 220 X10^3/uL (150-400)
[2024-09-25 12:50] LABS: Alanine Aminotransferase 21 IU/L (<35); Albumin 2.9 g/dL (3.5-5.0); Albumin Globulin Ratio 1.1 (1.0-2.8); Alkaline Phosphatase 100 U/L (38-126); Blood Urea Nitrogen 33 mg/dL (7-17); Calcium 8.0 mg/dL (8.4-10.2); Carbon Dioxide 26 mmol/L (22-32); Chloride 100 mmol/L (98-107); Estimated Glomerular Filt Rate 50 mL/min (>60); Globulin 2.6 g/dL (1.7-4.1); Glucose 100 mg/dL (70-99); HEMOLYSIS < 15 (0-50); Lipase 56 U/L (23-300); Potassium 3.7 mmol/L (3.4-5.1); Sodium 133 mmol/L (137-145); Total Protein 5.5 g/dL (6.3-8.2)
--- NOTE | 2024-09-25 12:53 | DI.CT.S_ITS ---
PROCEDURE: CT ABDOMEN PELVIS WO CON INDICATIONS: abdominal pain/sbo TECHNIQUE: CT of the abdomen and pelvis was obtained without intravenous contrast. Coronal and sagittal reformats were performed. For radiation dose reduction, the following was used: automated exposure control, adjustment of mA and/or kV according to patient size. COMPARISON: 01/11/2021. FINDINGS: Image quality: Diagnostic. Lower Chest: No significant findings. ABDOMEN: Liver: No contour-deforming mass. Gallbladder: Not visualized. Biliary ducts: No biliary dilation. Pancreas: No ductal dilation. Spleen: Size is within normal limits. Adrenal Glands: No adrenal nodules. Kidneys and Ureters: Tiny nonobstructing left renal calculi are seen. No hydronephrosis. No contour-deforming mass. Stomach and Bowel: Postsurgical changes are noted in epigastric region. No evidence of bowel obstruction. No gross abnormal bowel wall thickening. No abscess collection. Peritoneum: Small amount of ascites fluid is seen in abdomen and pelvis. No peritoneal free air. Ventral Wall: No significant hernia. Generalized anasarca is seen. Abdominal Nodes: No retroperitoneal or mesenteric adenopathy by size criteria. Vessels: Aorta and inferior vena cava are normal in size. PELVIS: Pelvic Organs: Unremarkable. Bladder: Mild diffuse bladder wall thickening. Possible calcified bladder stone in left dependent portion of bladder is noted measures 5 mm in size. Pelvic Nodes: No enlarged lymph nodes. Miscellaneous: No inguinal hernias are seen. Bones: No aggressive osseous abnormality. Degenerative endplate changes are noted throughout lower thoracic and lumbar spine. No acute vertebral body compression fracture. IMPRESSION: 1. No bowel obstruction or obvious bowel wall thickening. No abscess collection. No peritoneal free air. Small amount of ascites fluid is noted in abdomen and pelvis. 2. 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 3. Generalized anasarca. 4. Bilateral tiny nonobstructing renal calculi. No obstructing stones or hydronephrosis. Bladder stone as above. Mild diffuse bladder wall thickening, concerning for cystitis. Dictated by: Jose Guadalupe Arzola M.D. on 09/25/2024 at 12:55 Approved by: Jose Guadalupe Arzola M.D. on 09/25/2024 at 13:38
[2024-09-25 17:12] LABS: Ictotest Urine Negative (Negative)
[2024-09-25 17:18] LABS: Culture Indicated Urine Specimen Cultured
[2024-09-25] MEDS: SODIUM CHLORIDE 0.9% 1,000 ML 500 ML IV (18:28)
--- NOTE | 2024-10-18 17:28 | ED.ABDPAIN ---
HPI - Abdominal Pain General Chief Complaint: Abdominal Pain Stated Complaint: weakness, abd pain, hx SBO Time Seen by Provider: 09/25/24 12:52 Source: patient Mode of arrival: EMS History of Present Illness HPI narrative: 84 yo f who comes in from assisted living facility with paramedics due to lower abdominal discomfort and urinary frequency. she denies hematuria/dysuria, or any blood in bm. She denies any fever, chills, or other symptoms. Related Data Home Medications ?Medication ?Instructions ?Recorded ?Confirmed alprazolam 0.25 mg tablet 0.25 mg PO PRN ##0 02/16/11 05/22/22 brimonidine 0.2 % eye drops 1 drp EYE-BOTH DAILY 05/22/22 05/22/22 celecoxib 200 mg capsule 200 mg PO DAILY 05/22/22 05/22/22 dorzolamide 22.3 mg-timolol 6.8 1 drp EYE-BOTH DAILY 05/22/22 05/22/22 mg/mL eye drops hydrocodone 5 mg-acetaminophen 325 5 - 325 tab PO Q4H PRN Pain (Scale 05/22/22 05/22/22 mg tablet Score 4-6) omeprazole 20 mg capsule,delayed 20 mg PO DAILY 05/22/22 05/22/22 release trospium 60 mg capsule,extended 60 mg PO BEDTIME 05/22/22 05/22/22 release 24 hr zolpidem 12.5 mg tablet,extended 12.5 mg PO DAILY 05/22/22 05/22/22 release,multiphase Allergies Allergy/AdvReac Type Severity Reaction Status Date / Time Sulfa (Sulfonamide Allergy Severe ITCHY AND Verified 09/25/24 12:02 Antibiotics) SOB Review of Systems Review of Systems ROS Unobtainable: All systems reviewed & are unremarkable except as noted in HPI and below Patient History Social History household members: spouse alcohol intake: current alcohol intake frequency: other Exam Narrative Exam Narrative: gen: no acute distress cv: regular rate rhythm lungs: clear to auscultation bilaterally abd: soft, mildly tender to suprapubic region, no cva tenderness ext: no edema neuro: no focal deficits. Initial Vital Signs Initial Vital Signs: Vital Signs Temperature 99.9 F H 09/25/24 12:02 Pulse Rate 85 09/25/24 12:02 Respiratory Rate 14 09/25/24 12:02 Blood Pressure 117/60 09/25/24 12:02 Pulse Oximetry 98 09/25/24 12:02 Oxygen Delivery Method Room Air 09/25/24 12:02 Course Course Course Narrative: labs showed uti picture, due to abdominal sx, will treat with fluids as well as rocephin Orders Ordered: Discontinued Medications Ceftriaxone Sodium 1,000 mg/ (Sodium Chloride) 100 mls @ 200 mls/hr IV NOW ONE Stop: 09/25/24 18:04 Last Infusion: 09/25/24 19:38 Dose: Infused Documented By: Admin: 09/25/24 18:26 Dose: 200 mls/hr Documented By: Sodium Chloride (Normal Saline 0.9%) 1,000 mls @ 500 mls/hr IV BOLUS ONE Stop: 09/25/24 20:02 Last Infusion: 09/25/24 20:45 Dose: Infused Documented By: Admin: 09/25/24 18:28 Dose: 500 mls/hr Documented By: Ondansetron HCl (Ondansetron 4 Mg/2 Ml Inj) 4 mg IV NOW PRN PRN Reason: Nausea And Vomiting Ondansetron HCl (Ondansetron 4 Mg Odt) 4 mg PO NOW PRN PRN Reason: Nausea And Vomiting Reevaluation(s) Reevaluation #1: upon reevaluation, patient sx improved after iv fluids and rocephin MDM - Abdominal Pain Differential Diagnosis Differential diagnosis: Likely constipation, gastroenteritis, small bowel obstruction and other (urinary tract infection) Lab Data 09/25/24 12:27 09/25/24 12:27 Labs: Lab Results 09/25/24 09/25/24 Range/Units 12:27 17:01 WBC 19.1 H (4.5-11.0) X10^3/uL RBC 3.85 L (4.0-5.2) X10^6/uL Hgb 11.0 L (12.0-16.0) g/dL Hct 33.7 L (36-46) % MCV 87.6 (80-100) fL MCH 28.6 (26-34) PG MCHC 32.7 (30-36) % RDW 14.4 (11.6-14.8) % Plt Count 220 (150-400) X10^3/uL Neut % (Auto) 91.6 H (50-75) % Lymph % (Auto) 2.3 L (25-40) % [place] % (Auto) 6.0 (3-14) % Eos % (Auto) 0.0 L (2-4) % Baso % (Auto) 0.1 (0-2) % Neut # (Auto) 87962 H (9627-9242) /uL Lymph # (Auto) 400 L (6533-2316) /uL [place] # (Auto) 1100 H (0-900) /uL Eos # (Auto) 0 (0-450) /uL Baso # (Auto) 0 (0-100) /uL Sodium 133 L (137-145) mmol/L Potassium 3.7 (3.4-5.1) mmol/L Chloride 100 (98-107) mmol/L Carbon Dioxide 26 (22-32) mmol/L BUN 33 H (7-17) mg/dL Creatinine 1.11 H (0.52-1.04) mg/dL Estimated GFR 50 L (>60) mL/min BUN/Creatinine Ratio 29.7 H (6-22) Glucose 100 H (70-99) mg/dL Calcium 8.0 L (8.4-10.2) mg/dL Total Bilirubin 0.9 (0.2-1.3) mg/dL AST 30 (14-36) IU/L ALT 21 (<35) IU/L Alkaline Phosphatase 100 (38-126) U/L Total Protein 5.5 L (6.3-8.2) g/dL Albumin 2.9 L (3.5-5.0) g/dL Globulin 2.6 (1.7-4.1) g/dL Albumin/Globulin Ratio 1.1 (1.0-2.8) Lipase 56 (23-300) U/L Ur Bilirubin Confirm Negative (Negative) Urine RBC 0-1/hpf (0-5/HPF) Urine WBC 30-100/hpf H (0-5/HPF) Ur Squamous Epith Cells 1-5 /hpf (0-5/HPF) Urine Bacteria Many (>30) H (None) Urine Mucus 1+ H (Negative) Ur Culture Indicated? Specimen cultured Vol Urine Centrifuged 10ml (spun) Point of care testing: Urine Dip Bedside Urine Glucose Negative Bedside Urine Bilirubin + 1 Bedside Urine Ketone ++ 40 Urine Specific [place] 1.015 Bedside Urine Occult Blood + Bedside Urine pH 6.0 Bedside Urine Protein ++ 100 Bedside Urine Urobilinogen - Negative Bedside Urine Nitrite + Positive Bedside Urine Leukocytes +++ 500 Esterase MDM Narrative Medical decision making narrative: patient treated for obvious uti with fluids and iv rocephin, will finish regimen with outpatient abx, f/up if symptoms persist Discharge Plan Departure Patient Disposition: Home Clinical Impression: Acute urinary tract infection Instructions: DI for Urinary Tract Infection (UTI) Activity Restrictions/Additional Instructions: Take medicine as prescribed, hydrate well, come back sooner to ER if symptoms worsen. Prescriptions: No Action alprazolam 0.25 MG tablet 0.25 mg PO PRN Qty: 0 celecoxib 200 mg capsule 200 mg PO DAILY Patient Comments: Take 1 capsule by mouth once a day brimonidine 0.2 % drops 1 drp EYE-BOTH DAILY dorzolamide-timolol 22.3-6.8 mg/mL drops 1 drp EYE-BOTH DAILY zolpidem 12.5 mg tablet,ext release multiphase 12.5 mg PO DAILY Patient Comments: Take 1 tablet by mouth every night as needed ok to fill 06/18/2022 (#2 of 3) trospium 60 mg capsule,extended release 24hr 60 mg PO BEDTIME hydrocodone-acetaminophen 5-325 mg tablet 5 - 325 tab PO Q4H PRN (Reason: Pain (Scale Score 4-6)) omeprazole 20 mg capsule,delayed release(DR/EC) 20 mg PO DAILY Referrals: Elie Bolaños MD [Primary Care Provider, Family Practice] Stand Alone Forms: Patient Portal/API
== END 2024-09-25 20:49 | disposition home or self-care (01) ==
PROVIDERS: Emergency Provider Family Medicine; PCP Family Medicine
DX: N39.0 Urinary tract infection, site not specified (principal)
CPT/HCPCS: 36415; 74176; 80053; 81003; 81015; 83690; 85025; 87077; 87086; 87186; 93005; 96361; 96365; 99284; J0696